=== PATIENT | female | born 1980 | race Caucasian/White ===

== ENCOUNTER 2024-07-31 08:00 | Outpatient (RCR) | payer OTHER, SELFPAY ==
--- NOTE | 2024-07-31 10:15 | BH.SGPN.GN ---
Behaviors/Verbalizations/Mental Status: []Client alert and oriented, casually dressed and groomed. Eye contact good. Motor activity appropriate. Speech within normal limits. Affect congruent, mood anxious. Thoughts linear, logical, no signs of hallucinations or delusions. Client Response/Progress/Benefit: [] Pt was an attentive and active participant, AEB taking notes and providing input in group discussion when prompted. Attentive during psychoeducation. Pt engaged during interactive discussion in which the group defined self-care and discussed its benefits. Group discussed barriers to engaging in self-care. Group members together came up with guilt, time, ?people pleasing?, not knowing what to do, and perception that its unproductive as barriers to engage in self-care. Pt participated in small groups where they worked to identify and challenged common self-care ?myths?. Benefited from increased awareness of self-care, its benefits, and the consequences of not utilizing self-care strategies. Will continue IOP tx to improve healthy coping skills, challenge negative thoughts, and prevent decompensation.
--- NOTE | 2024-07-31 11:15 | BH.SGPN.GN ---
Behaviors/Verbalizations/Mental Status: [] Client alert and oriented, casually dressed and groomed. Eye contact good. Motor activity appropriate. Speech within normal limits. Affect congruent, mood anxious and depressed. Thoughts linear, logical, no signs of hallucinations or delusions. Client Response/Progress/Benefit: []Client first day in IOP tx, engaged in discussion reviewing different areas of self-care and completing self-assessment of current self care, as well as providing input throughout discussion. Did well to complete self-care self-assessment worksheet. Client identified current self-care practices and what self-care activities client wants to start using. Client selected emotional and social self-care to begin practicing more consistently. Client plans to do this by challenging themselves to make a consistent effort to practice self-compassion, as well as begin scheduling social plans ahead of time to increase likelihood of follow-through. Appeared to benefit from completing the self-care evaluation and gaining insights into current self-care practices, as well as identifying areas in which client would like to improve upon. Client will continue IOP tx to prevent decompensation, improve mood stability, and increase ability to challenge and replace thought distortions. Narrative Note: []
--- NOTE | 2024-07-31 14:33 | BH.COMM ---
Communication Note Communication with Client Communication Note: Met with pt to complete initial paperwork and administer the CSSR-S screening and risk assessment. Pt is a mild risk as pt denies any history of suicide attempts, no history of suicidal ideations, and no self-harm history. Pt does endorse survival ambivalence and thoughts of . Pt is future oriented. Pt reports ability to maintain safety today. Discussed case with Dr. 

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
--- NOTE | 2024-08-01 09:00 | BH.SGPN.GN ---
Behaviors/Verbalizations/Mental Status: [] Pt alert and oriented, neatly dressed and groomed. Eye contact good. Motor activity appropriate. Speech within normal limits. Affect congruent, mood depressed and anxious. Thoughts linear, logical, no signs of hallucinations or delusions. Reviewed pt?s symptom tracker, no risk for suicidal ideation, plan, or intent 08/01/24 Client Response/Progress/Benefit: []Pt was an active participant in group discussions. Attentive. Able to identify mental health wins including coming back today and not avoiding. Pt's stressor today is that pt is getting mental health treatment which is positive but right now is causing higher anxiety. Pt stated he is feeling anxious this morning. Pt receptive to feedback from peers which pt reported was helpful. Pt's second day of IOP and received a lot of encouragement from peers. Benefited from group support, encouragement, and feedback. Will continue in IOP to prevent decompensation, improve daily functioning, and increase self-compassion. Narrative Note: []
--- NOTE | 2024-08-01 10:15 | BH.SGPN.GN ---
Behaviors/Verbalizations/Mental Status: [] Eye contact is good. Motor activity is appropriate. Appearance is casual. Speech is Appropriate. Mood is anxious. Affect is congruent. Thoughts are linear and logical. No evidence of psychosis. Client Response/Progress/Benefit: [] Pt was an active participant during interactive group discussions. Along with peers contributed to interactive discussion on defining what a boundary is in mental health. Pt along with peers identified challenges to setting boundaries which included; people pleasing, fear of rejection, fear of loss, fear people won't respect the boundary, etc. Pt along with peers identified the benefits to setting boundaries such as reduces assumptions, can reduce stress, improve communication/relationships, and can keep us safe. Attentive during psychoeducation on types of boundaries (rigid, porous, flexible). Pt benefited from increased awareness and insight on the importance/benefit to setting health boundaries. Will continue in IOP to prevent decompensation, decrease anxious thoughts, and increase healthy coping.
--- NOTE | 2024-08-01 11:20 | BH.SGPN.GN ---
Behaviors/Verbalizations/Mental Status: []Eye contact is good. Motor activity is appropriate. Appearance is casual. Speech is Appropriate. Mood is depressed and anxious. Affect is congruent. Thoughts are linear and logical. No evidence of psychosis. Client Response/Progress/Benefit: []Pt responded well to session AEB listening attentively to peers and taking notes throughout. Reports connecting with rigid boundaries, especially with her intellectual and emotional boundaries. Participated in group discussion brainstorming various strategies for improving healthy boundary setting. Pt reports wanting to improve her comfort levels with trusting others emotionally. Seemed to benefit from increased awareness of how different boundary styles can impact mental health. Will continue IOP tx to prevent decompensation, improve daily functioning, and increase mood stability. Narrative Note: []
--- NOTE | 2024-08-02 09:15 | BH.NA ---
Physical Data Vital Signs Pulse Rate: 80 Blood Pressure: 174/118 Height/Weight Height: 1.63 m Weight:: 81.647 kg Weight in Pounds: 180.0 lbs Current Medication Compliance Medication Compliance Do you take your medication as prescribed?: Yes Nutritional History Appetite Nutritional Instructions: Describe your appetite:: Good Additional nutritional information:: Client states over the summer she lost 20lbs unintentionally from loss of appetite. Client states currently her appetite is increased. Functional Assessment Sleep Pattern Describe any problems with sleeping: Client states she sleeps about 8 hours per night, but does not feel rested when she wakes up. Sensory/Communication Assess Communication Problems Do you have difficulty understanding what people are saying?: No Medical Problems/History Pain Assessment Do you have acute or chronic pain?: No Surgical History Surgical History Have you had any surgeries? If so, list type and date:: Yes ( x2, jaw surgery) Substance Abuse Substance Abuse Please describe substance abuse in the last 30 days:: Client reports drinking alcohol on the weekends socially. Client denies tobacco or substance use. Client states she drinks 3 cups of coffee per day. Mental Status Summary Mental Status Significant Findings/Observations on Appearance and Mood:: Client is alert and oriented x 4. Client is casually groomed with good hygiene. Client is cooperative with assessment. Client makes good eye contact. Client's voice has normal rate and volume. Client appears moderately anxious during conversation with hand tremors and tapping her feet. Client has a somewhat constricted affect. Client makes logical associations and has normal processing. Client denies delusions/hallucinations. Client denies SI. Suicide Assessment Suicidal Ideation Are you currently or have you been suicidal in the past?: Yes Suicidal Intentional Rating Scale (SIRS): Suicidal thoughts (past) Physician Notification Past Psychiatric History MH Treatment Hx Past Psychiatric Medications:: Prozac Age of first mental health symptoms: Client was first on medication for depression around age 21 and took Prozac off and on for years after. Client recently took a Gene Sight test and Prozac is not a good match and she is now on Pristiq. Describe (age, circumstance, etc) any past hospitalizations: None. Current providers for mental health treatment (counselor, psychiatrist, human services case manager, etc.): Valeria Ch at [facility] for therapy, RASHEEDA Silva, at [place] [id number] Fall Risk Assessment Age Age: Less than 60 Physical Status Physical Status: No problems Impairments Impairments: None Elimination Elimination: Continent AND independent Gait or Balance Gait or Balance: Walks independently Hx of Falls History of falls in the past 6 months: No known history Medications/Substances Psychotropics:: Antidepressants and Antipsychotics RN Summary of Impressions Impressions Recommendations Impressions: Psychiatric Issues: 1. Major depressive disorder, recurrent, severe without psychosis 2. Generalized anxiety disorder 3. Rule out PTSD 4. Work and primary support issues Impression: Medical Issues: Clients BP 174/118 HR 80. Discussed with client. Client states she does not know what her BP usually is. Client states she has been almost constantly at a high level of anxiety for the last several months. Client appears anxious during assessment. BP was rechecked after 10 minutes and remained the same. Discussed BP with Dr. Calloway. See communication note for further details. Level of Care How do the client's current symptoms and functional deficits support need for this level of care?: Client was referred to IOP by her outpatient therapist for anxiety and depression. Client states she has had periods of depression before in her life that she has gone through, but states since March 2024 she has also had high levels an anxiety that are hard to manage. Client states the worst anxiety was about 3 weeks ago, and states that was the last time she had a panic attack. Client had been having panic attacks over the last few months. Client also reports isolating herself at home, ruminations, decreased energy, and feeling like a burden. Client denies SI. IOP will promote gains and prevent further decompensation while providing social support and skills training.
--- NOTE | 2024-08-02 10:10 | BH.COMM ---
Communication Note Communication with Client Communication Note: BP 174/[address] Calloway suggests having client lay down and attempt to relax and retake BP. This nurse talked to client again. Client agreed to lay down for 15 minutes in dark room with relaxing music playing. After 15 minutes of laying down, this nurse took client's BP again- 159/112 [address] with Dr. Calloway and Dr. Calloway suggested client be seen in urgent care or ER due to high blood pressure. Discussed at length with client the risk of high BP and Dr. Nova suggestion to be evaluated. Client states she will consider going to the ER, and will go be seen if she develops symptoms (symptoms of a stroke discussed with client). Client agrees to call for a PCP appointment with the new provider of her choice today for an appointment SHANNAN, and states she will go home and take PRN Hydroxyzine and attempt to relax.
--- NOTE | 2024-08-02 10:15 | BH.SGPN.GN ---
Behaviors/Verbalizations/Mental Status: [] Eye contact is good. Motor activity is appropriate. Appearance is casual. Speech is Appropriate. Mood is anxious and depressed. Affect is congruent. Thoughts are linear and logical. No evidence of psychosis. Client Response/Progress/Benefit: [] Pt receptive to session AEB listening attentively to others and taking notes. Pt attentive and contributing throughout psychoeducation on the cognitive triangle and maintenance cycles. Pt engaged during group discussion reviewing the impact of daily activities and behaviors in either reinforcing unhealthy maintenance cycles and depression or assisting in reducing symptoms (?down? vs ?up? activities). Pt identified personal ?down? activities they engage in as: avoiding tasks, shutting down, and not getting ready. Attentive during discussion on Common ?Up? activities Pt identified theirs to include: doing make-up, taking care of basic needs, and time with her family. Appeared to benefit from increased awareness of current behaviors and impact these have on mental health. Will continue IOP to improve mood stability, prevent decompensation, and reduce negative thinking patterns. ?? Narrative Note: []
[2024-08-02 10:54] VITALS: BP 174/118; PULSE 80
--- NOTE | 2024-08-02 11:15 | BH.SGPN.GN ---
Behaviors/Verbalizations/Mental Status: []Eye contact is fair. Motor activity is appropriate. Appearance is casual. Speech is Appropriate. Mood is anxious. Affect is congruent. Thoughts are linear and logical. No evidence of psychosis. Client Response/Progress/Benefit: [] Pt responded well to session, attentive and engaged in group discussions and activity. Actively engaged in continued discussion about up activities and down activities. Active participant as group discussed values and the benefits that knowing one's values can have on one's mental health. Pt completed personal cognitive triangle negative loop. Pt set a goal to use opposite action to get up and get dressed after her second cup of coffee. Benefited from increased awareness of their personal values and how incorporating their values into behavioral activation goals can positive impact mental health. Will continue in IOP to improve healthy coping skills, decrease distortions, and prevent decompensation.
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
--- NOTE | 2024-08-02 13:23 | BH.DR.ITP ---
Initial Treatment Plan Patient Information Visit Information: ADMISSION DATE: EXPECTED LOS: 4-6 weeks Problems/Symptoms Problem #1:: Depression Symptom:: Sadness, hopelessness, worthlessness, low motivation, anhedonia, low energy, decreased concentration, guilt, passive thoughts of Problem #2:: Anxiety Symptom:: Worry, rumination, history of panic attacks, avoidance, hypervigilance
--- NOTE | 2024-08-07 09:00 | BH.SGPN.GN ---
Behaviors/Verbalizations/Mental Status: [] Eye contact is good. Motor activity is appropriate. Appearance is casual. Speech is Appropriate. Mood is depressed/anxious. Affect is congruent. Thoughts are linear and logical. No evidence of psychosis. Reviewed daily check in sheet and no reports of suicidal ideations or intent. Client Response/Progress/Benefit: [] Pt was an active participant in group discussions. Attentive. Daily symptom tracker notes 4/5 for anxiety and 3/5 for depression/irritability. According to pt she made appointments with her PCP ivelisse holman physical issues which have been impacting her for several months. She had put off these appointment due to mental health. Reports feeling ?relieved? that the appointments are made and the issues will be addressed. Stressor is returning to work this week. She has been off for 2 weeks and is anxious about returning. Progress noted. Benefited from group support, encouragement, and feedback. Will continue in IOP to prevent decompensation, stabilize anxiety, and increase healthy coping. Narrative Note: []
--- NOTE | 2024-08-07 10:15 | BH.SGPN.GN ---
Behaviors/Verbalizations/Mental Status: []Client alert and oriented, casually dressed and groomed. Eye contact good. Motor activity appropriate. Speech within normal limits. Affect congruent, mood anxious and depressed. Thoughts linear, logical, no signs of hallucinations or delusions. Client Response/Progress/Benefit: [] Pt responded well to session AEB actively participating throughout group. Pt was attentive throughout group activity discussing famous individuals and how they overcame failure to be successful. Pt helped group identify how fear of failure can impact mental health and relationships. Pt personally identified it leads to pt to try and control everything and take on too much. Participated in experiential activity, working with group members to problem solve. Appeared to benefit from increased knowledge of what causes fear of failure and how it impacts people. Will continue IOP tx to prevent decompensation, improve mood stability, and challenge use of thought distortions reinforcing depression and anxiety sx. Narrative Note: []
--- NOTE | 2024-08-07 11:15 | BH.SGPN.GN ---
Behaviors/Verbalizations/Mental Status: []Pt alert and oriented, neatly dressed and groomed. Eye contact good. Motor activity appropriate. Speech within normal limits. Affect congruent, mood anxious and depressed. Thoughts linear, logical, no signs of hallucinations or delusions. Client Response/Progress/Benefit: [] Pt responded well to session, engaged in the experiential activity and attentive throughout group processing. Pt reported fear of failure has kept Pt from changing her career and going back to school. Pt completed fear of failure worksheet and was able to identify thoughts and behaviors that reinforce personal fear of failure including not being able to trust people, fear of disappointing others, and fear that she cannot do it. Pt participated in small group discussion regarding strategies to overcome fear of failure. Identified wanting to work on telling herself ?I am the STEEL WELDER of my life? and thinking in the altamirano. ?Appeared to benefit from increased knowledge of strategies to combat fear of failure and gaining self-awareness. Pt will continue IOP tx to prevent decompensation, combat distortions, and increase self-compassion. Narrative Note: []
--- NOTE | 2024-08-08 09:05 | BH.SGPN.GN ---
Behaviors/Verbalizations/Mental Status: [] Pt alert and oriented, neatly dressed and groomed. Eye contact good. Motor activity appropriate. Speech within normal limits. Affect congruent, mood depressed. Thoughts linear, logical, no signs of hallucinations or delusions. Reviewed pt?s symptom tracker, no risk for suicidal ideation, plan, or intent 08/08/24 Client Response/Progress/Benefit: []Pt was an active participant in group discussions. Attentive. Able to identify mental health wins including getting to IOP today and planning to go to work half a day today which is also a stressor too. Pt's stressor today is that pt feels like I don't have anything for myself and that she should not feel depressed because she has a perfect life. Pt stated pt is feeling confused this morning. Pt receptive to feedback from peers which pt reported was helpful. Progress noted as pt reports less anxiety about being in group this week. Benefited from group support, encouragement, and feedback. Will continue in IOP to prevent decompensation, improve daily functioning, and increase distress tolerance skills. Narrative Note: []
--- NOTE | 2024-08-08 10:15 | BH.SGPN.GN ---
Behaviors/Verbalizations/Mental Status: []Pt alert and oriented, casually dressed and groomed. Eye contact fair. Motor activity appropriate. Speech within normal limits. Affect congruent, mood anxious. Thoughts linear, logical, no signs of hallucinations or delusions. Client Response/Progress/Benefit: [] Pt was attentive during psychoeducation and participated in group activity. Group discussed what contributes to a person?s perspective and how perspective can positively or negatively impact mental health treatment. Pt reflected on their perspective today and how it is impacting them. Pt shared her initial perspective towards mental health treatment was somewhat negative, but is trying to challenge this perspective and has some hope she can get better. Pt appeared to benefit from increasing awareness of different perspectives and how they can affect mental health. Pt will continue IOP tx to improve view of self, increase consistent use of healthy coping skills, and prevent decompensation. Narrative Note: []
--- NOTE | 2024-08-08 11:18 | BH.SGPN.GN ---
Behaviors/Verbalizations/Mental Status: []Pt alert and oriented, casually dressed and groomed. Eye contact good. Motor activity appropriate. Speech within normal limits. Affect congruent, mood depressed and anxious. Thoughts linear, logical, no signs of hallucinations or delusions. Client Response/Progress/Benefit: []Pt was attentive and contributed to group discussion. Pt worked with group to identify strategies that can help with challenging negative perspective. Pt stated she can remind self that things can be both black and white as a way to challenge negative perspective. Pt completed strengths exploration worksheet, identifying personal strengths. Pt able to acknowledge how these strengths are helping pt and can continue to help pt in mental health journey. Benefited from identifying personal strengths and strategies for enhancing use of identified strengths. Pt will continue IOP tx to continue practice healthy coping skills, improve thought challenging, and prevent decompensation. Narrative Note: []
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
--- NOTE | 2024-08-10 09:00 | BH.SGPN.GN ---
Behaviors/Verbalizations/Mental Status: [] Eye contact is good. Motor activity is appropriate. Appearance is casual. Speech is Appropriate. Mood is anxious/irritable. Affect is congruent. Thoughts are linear and logical. No evidence of psychosis. Reviewed daily check in sheet and no reports of suicidal ideations or intent. Client Response/Progress/Benefit: [] Pt was an active participant in group discussions. Attentive. Daily symptom tracker notes 5/5 for anxiety and irritability. ? I feel very scattered in my head?. Went back to work and ?hated every moment?. Points out that her co-workers and boss are very supportive however does not get satisfaction from her current job. ? I just can?t anymore?. Reports crying spell in her car this AM and reports feeling unsure and lost regarding her current life. No progress noted. Benefited from group support, encouragement, and feedback. Will continue in IOP to prevent decompensation, increase healthy coping, and improve functioning. Narrative Note: []
--- NOTE | 2024-08-10 10:10 | BH.SGPN.GN ---
Behaviors/Verbalizations/Mental Status: [] Eye contact is good. Motor activity is appropriate. Appearance is casual. Speech is Appropriate. Mood is depressed and anxious. Affect is congruent. Thoughts are linear and logical. No evidence of psychosis. Client Response/Progress/Benefit: [] Pt did well to participate in activity and was engaged and attentive during psychoeducation and interactive discussion on coping skills, why people use unhealthy coping skills, how to replace unhealthy coping skills, and internal vs external coping skills. Attentive as peers came up with list of negative coping skills including not asking for help, avoidance, isolating, sleeping, shopping, substance use, and several others. Pt stated she has used isolation and substance use as an unhealthy coping skill. Recognizes this makes things worse. Stated she has been working on challenging herself to use thought challenging and self-compassion. Group discussed the effects of how maladaptive coping skills can impact mental health in a negative way. Benefited from increased understanding of unhealthy coping skills and the need for developing healthy internal and external coping skills. Will continue in IOP to promote healthy coping skills, improve mood stability, and prevent decompensation. Narrative Note: []
--- NOTE | 2024-08-10 11:10 | BH.SGPN.GN ---
Behaviors/Verbalizations/Mental Status: []Pt alert and oriented, neatly dressed and groomed. Eye contact good. Motor activity appropriate. Speech within normal limits. Affect congruent, mood depressed. Thoughts linear, logical, no signs of hallucinations or delusions. Client Response/Progress/Benefit: [] Pt responded well to session, taking notes and contributing when prompted. Group discussed the different categories of coping skills which included distraction, emotional release, grounding, self-love, and thought challenging. Pt participated in creating a coping skills ?menu? from the different categories of coping skills. Pt's coping skill menu included: journaling, cleaning, box breathing, and practicing catching distortion ?red flags?. Appeared to benefit from increasing repertoire of healthy coping skills. Will continue IOP to prevent decompensation, increase self-compassion, and improve daily functioning. ? Narrative Note: []
--- NOTE | 2024-08-14 09:05 | BH.SGPN.GN ---
Behaviors/Verbalizations/Mental Status: [] Eye contact is good. Motor activity is appropriate. Appearance is casual. Speech is Appropriate. Mood is anxious.. Affect is constricted. Thoughts are linear and logical. No evidence of psychosis. Reviewed daily check in sheet and no reports of suicidal ideations or intent. Client Response/Progress/Benefit: [] Pt was an active participant in group discussions. Attentive. Daily symptom tracker notes 11/01 for depression and anxiety. ? I?m feeling more like myself?. ? I only had one meltdown? over the weekend. According to pt she has been placing more emphasis on self-care, communication, and setting boundaries. ? I always thought self-care was a waste of resources?. Insight on how this perspective change and action benefited her mental health. Progress noted. Benefited from group support, encouragement, and feedback. Will continue in IOP to prevent decompensation, increase healthy coping, and improve functioning. Narrative Note: []
--- NOTE | 2024-08-14 10:10 | BH.SGPN.GN ---
Behaviors/Verbalizations/Mental Status: [] Eye contact is fair. Motor activity is appropriate. Appearance is casual. Speech is Appropriate. Mood is anxious and dysthymic. Affect is congruent. Thoughts are linear and logical. No evidence of psychosis. Client Response/Progress/Benefit: [] Pt receptive of session, actively engaged throughout AEB taking notes, providing input, and contributing in small group discussion. Appeared to connect with group topic of automatic thoughts and cognitive distortions, as well as the impact of thought patterns on mental health, coping behaviors, and relationships. This particular group is very heavy on psychoeducation and pt appeared to connect with distortions and how they can impact functioning. Identified struggling with all or nothing distortion. Pt appeared to benefit from gaining insight on distorted thinking patterns and how this impacts overall mental health. Will continue IOP to increase healthy coping, challenge perspective, and prevent decompensation.
--- NOTE | 2024-08-14 11:15 | BH.SGPN.GN ---
Behaviors/Verbalizations/Mental Status: [] Eye contact is good. Motor activity is appropriate. Appearance is casual. Speech is Appropriate. Mood is anxious and content. Affect is congruent. Thoughts are linear and logical. No evidence of psychosis. Client Response/Progress/Benefit: [] Pt was an active participant during group discussion. Pt was placed in a smaller group and participated in cognitive distortions jeopardy game with peers. Pt was engaged in the smaller group, participated in group interactions to brainstorm answers, and appeared to be comprehending cognitive distortions. Pt stated could connect with many of the distortions covered in group. Pt stated they now have knowledge on how cognitive distortions are affecting them negatively, which distortions they specifically struggle with, and how communication be impeded when both parties are experiencing distorted thoughts. Benefited from gaining further insight and awareness of cognitive distortions as well as practicing ways to reframe and challenge thoughts. Will continue in IOP tx to increase healthy thinking patterns, functioning, and anxiety management. Narrative Note: []
--- NOTE | 2024-08-15 09:00 | BH.SGPN.GN ---
Behaviors/Verbalizations/Mental Status: [] Pt alert and oriented, neatly dressed and groomed. Eye contact good. Motor activity appropriate. Speech within normal limits. Affect congruent, mood euthymic. Thoughts linear, logical, no signs of hallucinations or delusions. Reviewed pt?s symptom tracker, no risk for suicidal ideation, plan, or intent 08/15/24 Client Response/Progress/Benefit: []Pt was an active participant in group discussions. Attentive. Able to identify mental health wins including practicing a lot of self-care over the weekend, setting boundaries, and becoming better at being vulnerable with her . Pt's stressor today is preparing for Thanksgiving and trying to not get too overwhelmed. Pt stated she is feeling settled this morning. Pt receptive to feedback from peers which pt reported was helpful. Progress noted. Benefited from group support, encouragement, and feedback. Will continue in IOP to prevent decompensation, increase distress tolerance skills, and improve daily functioning. Narrative Note: []
--- NOTE | 2024-08-15 10:15 | BH.SGPN.GN ---
Behaviors/Verbalizations/Mental Status: [] Eye contact is fair. Motor activity is appropriate. Appearance is casual. Speech is Appropriate. Mood is anxious. Affect is constricted. Thoughts are linear and logical. No evidence of psychosis Client Response/Progress/Benefit: [] Pt engaged in session AEB listening attentively to others and providing input throughout. Pt engaged in activity, able to connect how it can be uncomfortable and difficult to accept when things are out of one?s own control. Worked with peer group to identify things in life which are hard to accept which included; loss, medical diagnoses, change, lack of control, failure, and needing help. Seemed to benefit from increased awareness of the meaning as well as the importance of acceptance. Will continue in IOP to prevent decompensation, increase healthy coping, and improve functionig to transition back to work. Narrative Note: []
--- NOTE | 2024-08-15 11:10 | BH.SGPN.GN ---
Behaviors/Verbalizations/Mental Status: []Pt alert and oriented, casually dressed and groomed. Eye contact fair. Motor activity appropriate. Speech within normal limits. Affect congruent, mood anxious. Thoughts linear, logical, no signs of hallucinations or delusions. Client Response/Progress/Benefit: [] Pt responded well to session AEB taking notes and contributing to discussion throughout. Pt engaged as group continued discussion on acceptance and the mental health benefits of practicing acceptance. Pt and peers identified what makes acceptance challenging and pt completed a self-reflection exercise on what is hard to accept in pt's life. Pt identified things that are hard to accept include: job struggles, past trauma, need for help, and mental health reality. Pt stated by not accepting certain situations it leads to increased anxiety and limits progress. Group identified strategies to increase acceptance. Pt appeared to benefit from gaining insight and learning strategies to increase acceptance. Pt will continue IOP tx to promote use of healthy coping skills, challenge negative perspective, and prevent decompensation.
--- NOTE | 2024-08-15 15:06 | BH.MDN ---
Multi-Disciplinary Note Note 45-min Individual: Time Started:: 12:10 Date: 08/15/24 Purpose of session/treatment goals addressed:: To work on goal #1 of pt's tx plan and to work on self-validation techniques. Eye Contact:: Good Motor Activity:: Appropriate Appearance:: Neat and Casual Speech:: Soft Mood:: Euthymic and Anxious Affect:: Congruent Thoughts:: Linear, Logical and No evidence of hallucinations/delusions noted Staff Interventions:: thought challenging, motivational interviewing, CBT techniques, mindfulness skills, strengths perspective and other (reviewed homework and discussed homework of exploring personal acceptance.) Client Response:: Pt responded well to session, open to meeting with therapist. Pt reports over the weekend she allowed herself to set boundaries and say no to some activities. Pt felt uncomfortable, but she challenged herself to make the most of her time, so she crafted. Pt stated doing the homework reminded pt how much she loves creating things and repurposing things. Pt shared she felt accomplished and happy while crafting. Pt stated then she became anxious and self-critical because she personalized a statement her made about her crafts. Pt reported she and her talked about it which helped pt combat distorted thinking, but pt is still mentally beating herself up for her immediate reaction. Pt receptive to discussion of acceptance of self and no bad parts. Pt gained insight to the benefit of accepting emotions and taking care of them rather than getting angry with them and dismissing them. Pt practiced some dialectical statements in session which pt reported was helpful. Another stressor pt has been thinking about is what she wants to do with her future. Pt opened up about not finding passion or enjoyment in her job and not wanting to return. Pt's barriers are fear of disappointing her , feeling selfish, fear of the unknown, and self-doubt. Pt shared she will say the barrier is financial, but it is not only that. Pt receptive to journaling to reflect more on what she wants to do and how her choices would impact her both short and long-term. Risks/Concerns:: Pt denies any suicidal ideations, plan, or intent. Pt denies any thoughts of . Progress Toward Goals/Plan:: Progress noted as pt shared the homework from last session led pt to engage in more self-care over the weekend. Pt shared she is becoming more open to the idea of advocating for her needs and discussing her desire to not return to work. Pt reports feeling less anxious when she is at IOP. Pt will continue IOP tx to promote mood stability, reduce negative thinking patterns, and improve self-compassion. Time Stopped:: 12:55
--- NOTE | 2024-08-18 09:00 | BH.SGPN.GN ---
Behaviors/Verbalizations/Mental Status: [] Eye contact is good. Motor activity is appropriate. Appearance is casual. Speech is Appropriate. Mood is anxious. Affect is congruent. Thoughts are linear and logical. No evidence of psychosis. Reviewed daily check in sheet and no reports of suicidal ideations or intent. Client Response/Progress/Benefit: [] Pt was an active participant in group discussions. Attentive. Daily symptom tracker notes 2/5 for anxiety and /5 for depression. ?I?m considering changing jobs?. Briefly discussed struggles with current job mainly related to lack of purpose and meaning. Shared how this impacts her mental health, energy, and motivation. ?I just have no passion?. She is planning to communicate and be honest with regarding job concerns. Progress noted. Benefited from group support, encouragement, and feedback. Will continue in IOP to prevent decompensation, increase healthy coping, and improve functioning. Narrative Note: []
--- NOTE | 2024-08-18 10:15 | BH.SGPN.GN ---
Behaviors/Verbalizations/Mental Status: []Pt alert and oriented, casually dressed and groomed. Eye contact good. Motor activity appropriate. Speech within normal limits. Affect congruent, mood content. Thoughts linear, logical, no signs of hallucinations or delusions. Client Response/Progress/Benefit: [] Pt took notes and contributed to group discussions. Attentive during psychoeducation on growth mindset. Participated during the activity. Interactive group discussion on growth mindset in which group verbalized their current fixed mindsets and how they affect their mental health. Pt shared common fixed mindset thoughts they have. These thoughts lead to feeling and staying stuck, not maintaining boundaries, and self-doubt. Pt stated they have personally struggled with fixed thoughts causing them to accept less out of guilt. Pt benefited from increased awareness of growth mindset and fixed thoughts and how fixed thoughts impact their mental health. Will continue IOP tx to prevent decompensation, improve daily functioning, and promote mood stability. Narrative Note: []
--- NOTE | 2024-08-18 11:10 | BH.SGPN.GN ---
Behaviors/Verbalizations/Mental Status: []Pt alert and oriented, neatly dressed and groomed. Eye contact good. Motor activity appropriate. Speech within normal limits. Affect congruent, mood calm. Thoughts linear, logical, no signs of hallucinations or delusions. Client Response/Progress/Benefit: []Pt was an active participant during activity and discussion. Pt did well to remain attentive and participate as group worked on identifying characteristics and benefits of adopting a growth mindset. Worked with fellow participants in reframing the example fixed thoughts into growth mindset thoughts. Pt worked on changing own fixed thought and reframed the thought to ?my decisions for my life are valid.? Pt also wants to work on using dialectical thinking. Pt appeared to benefit from challenging own thoughts and engaging in the activity. Pt will continue IOP tx to reduce negative thinking patterns, improve distress tolerance skills, and improve self-compassion. ? Narrative Note: []
--- NOTE | 2024-08-21 09:00 | BH.SGPN.GN ---
Behaviors/Verbalizations/Mental Status: [] Eye contact is good. Motor activity is appropriate. Appearance is casual. Speech is Appropriate. Mood is depressed. Affect is full. Thoughts are linear and logical. No evidence of psychosis. Reviewed daily check in sheet and pt denies suicidal ideations and intent. Client Response/Progress/Benefit: [] Pt participated throughout. Attentive and providing supportive feedback to peers. Daily symptom tracker notes 5 for anxiety and depression. Reports mental health win as starting to feel more like myself. However, went on to discuss struggling with inappropriate guilt about not currently working and feeling obligated to return to her current job despite hating it. Shared that although she recognizes her supports are encouraging her to do what is best for her mental health, she continues to feel guilty and place unnecessary pressure on herself to just suck it up and go back despite possible negative impacts that would have on her mental health long-term. Receptive of and benefited from group support, encouragement, and feedback. Will continue in IOP to prevent decompensation, stabilize mood, and further improve functioning. Narrative Note: []
--- NOTE | 2024-08-21 10:15 | BH.SGPN.GN ---
Behaviors/Verbalizations/Mental Status: []Patient was alert and oriented, casually dressed and groomed. Eye contact good. motor activity congruent. speech within normal limits. Affect congruent, mood euthymic. Thoughts linear, logical, no signs of hallucinations or delusion. Client Response/Progress/Benefit: []Pt participated in the group discussions AEB nodding and taking notes. Attentive during psychoeducation Goal Setting. Participated during the discussion on common barriers. Pt stated a personal barrier to accomplishing goals are judgment of self that goals aren't hard enough and self-doubt. Group also identified benefits of goals as sense of purpose, improved self-confidence, more motivation for other goals, and improved mental health. Pt identified personal benefits to goal setting. Benefited from increased awareness of mental health benefits of goals as well as psychoeducation on SMART goal criteria. Will continue in IOP to promote use of healthy coping skills, improve view of self, and prevent decompensation.
--- NOTE | 2024-08-21 11:10 | BH.SGPN.GN ---
Behaviors/Verbalizations/Mental Status: []Pt alert and oriented, neatly dressed and groomed. Eye contact good. Motor activity appropriate. Speech within normal limits. Affect constricted, mood anxious. Thoughts linear, logical, no signs of hallucinations or delusions. Client Response/Progress/Benefit: [] Pt was engaged during discussion and willing to complete the worksheet challenging them to develop a personal SMART goal. Pt chose the goal of advocating for herself about her plans for her job and future when talking to her today. Pt stated fear of rejection and fear of disappointing her as barriers. Identified solutions of reminding herself she matters and communicating ahead of time. Benefited from this group by developing a short-term SMART goal related to mental health. Will continue IOP tx to reduce negative thinking patterns, improve daily functioning, and increase self-confidence. Narrative Note: []
--- NOTE | 2024-08-21 14:22 | BH.MDN ---
Multi-Disciplinary Note Note 45-min Individual: Time Started:: 12:05 Date: 08/21/24 Purpose of session/treatment goals addressed:: To work on self-confidence techniques to reduce anxiety and improve self-advocacy. Eye Contact:: Good Motor Activity:: Appropriate Appearance:: Neat Speech:: Appropriate Mood:: Anxious Affect:: Constricted Thoughts:: Linear, Logical and No evidence of hallucinations/delusions noted Staff Interventions:: thought challenging, motivational interviewing, CBT techniques, mindfulness skills and strengths perspective Client Response:: Pt responded well to session, open to meeting with therapist. Pt shared I was starting to feel better and confident and then I totally shut down this weekend. Pt stated her had asked pt what her plan was for returning to work and she got anxious and fearful of disappointing him, so she agreed to just return to her old job. Pt then regretted this and wants to have another, more honest conversation, with her hood. Pt stated she knows that he is supportive and will likely understand, but pt has many negative thoughts that are reinforcing pt's avoidance and fear of disappointment. Pt appeared to benefit from thought challenging and motivational interviewing techniques. Pt reminded self that disappointment and disagreeing are not the same thing and pt and her are capable of coping through both of those stressors. Pt also looked at the evidence that combatted any distortions and reminded herself that she is worthy of expressing her needs and wants. Pt stated it would be helpful to go home and write down what she wants to say/discuss with her . Risks/Concerns:: Pt denies any suicidal ideations, plan, or intent. Pt denies any thoughts of . Progress Toward Goals/Plan:: Pt reports benefitting from group sessions and feels she is applying coping skills outside of IOP. Pt shared she is noticing some positive changes such as increased ability to combat distortions, but she is still struggling with advocating for herself. Pt will continue IOP tx to promote mood stability, increase self-compassion, and reduce avoidance. Time Stopped:: 12:45
--- NOTE | 2024-08-22 09:05 | BH.SGPN.GN ---
Behaviors/Verbalizations/Mental Status: [] Eye contact is good. Motor activity is appropriate. Appearance is casual. Speech is Appropriate. Mood is euthymic. Affect is full. Thoughts are linear and logical. No evidence of psychosis. Reviewed daily check in sheet and no reports of suicidal ideations or intent. Client Response/Progress/Benefit: [] Pt was an active participant in group discussions. Attentive. Daily symptom tracker notes 5 for anxiety and 5 for depression. ?I?ve hit a turning point in my life?. Feeling ?excited? today. Shared with the group that she ?talked with her ? regarding her desire to quit her current job. Discussed the impact that her current job had on her mental health, purpose, and meaning. Proud of herself on many levels and is excited about the future. Progress noted. Will continue in IOP to prevent decompensation, stabilize anxiety, increase healthy coping, and improve functioning Narrative Note: []
--- NOTE | 2024-08-22 10:15 | BH.SGPN.GN ---
Behaviors/Verbalizations/Mental Status: [] Eye contact is good. Motor activity is appropriate. Appearance is casual. Speech is Appropriate. Mood is euthymic. Affect is congruent. Thoughts are linear and logical. No evidence of psychosis. Client Response/Progress/Benefit: [] Pt engaged participant AEB listening to others, engaging in activity, and providing feedback at times. Attentive during psychoeducation and provided insight into obstacles that impede mental wellness. Pt chose to not share with group current mental health reality and desired mental health reality. Did appear attentive to others that shared. Identified barriers to desired reality include: fear of not doing the right thing, believe she doesn't deserve good things, and feeling hopeless. Benefited from taking look at current mental health state and obstacles for progress. Pt to continue IOP tx to challenge distorted thoughts, improve confidence, and prevent decompensation.
--- NOTE | 2024-08-22 11:20 | BH.SGPN.GN ---
Behaviors/Verbalizations/Mental Status: []Eye contact is good. Motor activity is appropriate. Appearance is casual. Speech is Appropriate. Mood is anxious and dysthymic. Affect is congruent. Thoughts are linear and logical. No evidence of psychosis. Client Response/Progress/Benefit: []Pt was an engaged participant in group discussion and activity. Worked with group to identify strategies to help overcome barriers and obstacles to desired reality. Group developed strategies for the common barriers. Identified personal barriers to desired reality and choose one obstacle to work. Pt stated pt wants to work on barrier of fear of disappointing others by asking herself if it will make her happy long-term. Pt seemed to benefit from increased repertoire of healthy coping skills/strategies to overcome common barriers to moving forward. Pt is to continue IOP to prevent decompensation, increase healthy coping skills, and improve daily functioning. Narrative Note: []
--- NOTE | 2024-08-23 09:00 | BH.SGPN.GN ---
Behaviors/Verbalizations/Mental Status: []Client alert and oriented, casual appearance. Eye contact good. Motor activity appropriate. Speech within normal limits. Affect congruent, mood euthymic and anxious. Thoughts linear, logical, no signs of hallucinations or delusions. Reviewed client's symptom tracker, no risk for suicidal ideation, plan, or intent. Client Response/Progress/Benefit: []Client responded well to session AEB listening to others and sharing thoughts/feelings. Client reported mental health positive as reflecting on group topic from yesterday when she went home which helped her gain personal insight. Client stated she really enjoyed doing a creative arts activity because it helped her see a different perspective. Client shared currently feeling stressed about whether she should attend family Thanksgiving tomorrow. Client elicited feedback from group on difference between isolation and setting a boundary. Client stated she will reflect on why she is wanting to not go to the family Thanksgiving. Appeared to benefit from support from peers. Will continue IOP tx to maintain gains, challenge distortions, and prevent decompensation.
--- NOTE | 2024-08-23 10:15 | BH.SGPN.GN ---
Behaviors/Verbalizations/Mental Status: [] Eye contact is good. Motor activity is appropriate. Appearance is casual. Speech is Appropriate. Mood is euthymic. Affect is full. Thoughts are linear and logical. No evidence of psychosis. Client Response/Progress/Benefit: [] Pt was an active participant in group discussions. Attentive during psychoeducation on the 4 communication styles (Passive, Passive-Aggressive, Aggressive, and Assertive) and the obstacles to effective communication. ?Participated during interactive discussions on the benefits and disadvantages to each communication style. Along with peers was able to identify struggles and illusions to effective communication. Pt believes that she is most often passive which causes her to not feel valued. Benefited from increased understanding of communication styles and how these can impact effective communication. Will continue in IOP tx to prevent decompensation, increase healthy coping, and improve functioning. Narrative Note: []
--- NOTE | 2024-08-23 10:19 | BH.COMM ---
Communication Note Communication with Client Communication Note: Checked in with client at this time since her BP was elevated upon assessment on 08/02/24. Client states she has seen her PCP and has started Metoprolol 50mg daily for her BP. Client states she checks her BP regularly at home. Today BP is 169/109 HR 63. Client states her diastolic at home now is usually in the 90's. Client states her PCP continues to monitor.
--- NOTE | 2024-08-23 11:15 | BH.SGPN.GN ---
Behaviors/Verbalizations/Mental Status: []Pt alert and oriented, neatly dressed. Eye contact good. Motor activity appropriate. Speech within normal limits. Affect congruent, mood euthymic. Thoughts linear, logical, no signs of hallucinations or delusions. Client Response/Progress/Benefit: [] Pt responded well to session AEB Pt listening attentively to others and providing input during group discussion on the pay offs and costs of the different communication styles. Pt able to connect how current communication style impacts mental health. Connected with peers? comments about importance of using assertive communication. Pt did well with practicing being assertive in the group activity and worked with group to identify potential skills for improving communication skills. Pt stated she will practice being assertive by being more direct and avoiding vague responses. Pt seemed to benefit from increasing awareness of healthy strategies to improve communication. Will continue IOP tx to promote mood stability, reinforce healthy coping skills, and increase self-confidence. Narrative Note: []
--- NOTE | 2024-08-23 12:24 | PCM.BH.PN ---
Progress Note Progress Note: History of Present Illness/Interim History: The patient is a 44-year-old female with a history of depression and anxiety who is seen in follow-up at the [facility]. I last saw the patient 3 weeks ago and at that time her blood pressure was severely [id number] so she was encouraged to see her primary care doctor and to go to the emergency room. The patient states that she has been diagnosed with hypertension and is on a medication for this now and this has made her feel better. She says her feeling of tightness in her chest has resolved after the hypertension was treated and her anxiety now has improved. She has taken an extended leave off of work while doing the IOP and feels good about this also. She states that her mood is getting better. According to staff she has been consistent in her attendance and engaged in the program. As per our discussion last appointment the patient has decided to discontinue the quetiapine due to weight gain and the fact that it does not help her sleep much. She has a experimented with doses and has found that 50 mg of Vistaril as needed for sleep at night is a good regimen for her. She is sleeping 8 hours a night now and feels more rested in the morning. She denies suicidal ideation, plan for suicide, homicidal ideation, hallucinations or delusions. She is not having any panic attacks in the past several weeks. Current Psychiatric Medications: [] Pristiq 50 mg p.o. daily (x 6 weeks); Seroquel discontinued about 2-1/2 to 3 weeks ago. She is not taking hydroxyzine 50 mg at bedtime as needed for sleep. Mental Status Examination: [] The patient is a 44-year-old female who appears normal or slightly older than her age. She is casually dressed and groomed with good hygiene and is ambulatory with a normal gait. She has no psychomotor agitation or retardation. She is cooperative and pleasant during the interview. Eye contact is good and speech is normal rate and rhythm and fluent with no pressure. Mood is depressed. Affect is mildly constricted. Thought process is goal-directed and organized. Thought content: Patient feels much less overwhelmed now and feels she is getting a handle on things in her life that need to be dealt with. There is no evidence of passive thoughts of , suicidal ideation, plan for suicide, homicidal ideation, hallucinations or delusions. Reality testing is intact. Intelligence is above average. Judgment is intact. Insight is good. Impulsivity is low to moderate. Diagnoses: [] 1. Major depressive disorder, recurrent, severe without psychosis (improving) 2. Generalized anxiety disorder 3. Rule out PTSD 4. Hypertension 5. Work and primary support issues Plan: [] The patient will continue the IOP in behavioral health at [facility] as the structure, support, education and group therapy will hopefully prevent worsening of the patient's symptoms. She felt safe during the interview and if it anytime she does not feel safe she has agreed to let us know or go to the emergency room. No medication changes were made today as the patient does not wish to increase her dose of Pristiq as she feels she is slowly improving on this dose. She will continue to follow-up with her outpatient providers and I will see the patient in follow-up while she is in the IOP.
--- NOTE | 2024-08-23 15:54 | BH.TPR ---
Treatment Plan Review Demographics Date of Admission:: 07/31/24 Date of Treatment Plan Review:: 08/23/24 Admitting Diagnoses:: Major Depressive Disorder, recurrent, severe, without psychosis F 33.2; MENDY; Rule out PTSD Current Diagnoses:: Major Depressive Disorder, recurrent, severe, without psychosis F 33.2; MENDY; Rule out PTSD Patient Status Patient's Response to Treatment:: Pt has responded well to session AEB consistently attending IOP and engaging in both individual and group therapy sessions. Pt consistently completes homework provided from individual counseling. Pt contributes actively during group discussions, takes notes, appears to listen to others, and engages in group activities. Pt's overall DSM-5 scores have decreased by 28% since admission and she reports finding benefit from the coping skills so far. Pt also reports improving functioning at home and increased confidence in her ability to communicate about stressors with her . Status of Current Problems and Symptoms: Pt's biggest stressor is deciding what she wants to do about her job and if she wants to return to college in the future. Pt's stressors with her are resolving as pt has been communicating openly with him about her thoughts on work. Pt's symptoms of depression have decreased, but she reports still feeling little interest in doing things most days. Pt also reports still not knowing who she is or what she wants in life most days. Pt is working on reducing self-judgment and advocating for herself. Progress Problem #1: Problem Name:: Depression, isolation, worthlessness, negative self-talk. Status of Goals:: Objective 1- in progress. Pt?s scores for depression have decreased since admission by 28%. Pt can benefit from reducing these symptoms more. Pt is working on practicing more self-care which is both beneficial and new for pt which adds some stress. Objective 2- in progress. Pt is working on self-compassion, dialectical thinking, and being vulnerable with her spouse. Team Recommendations:: Team recommends continued goals and objectives to reinforce skills and further reduce symptoms. Team recommends pt continue working on being vulnerable with her , being more self-compassionate, and practicing dialectical thinking. Problem #2: Problem Name:: Anxiety, rumination, panic attacks. Status of Goals:: Objective 1- in progress. Pt is working on not mind-reading and personalizing which has helped pt better communicate and cope with anxiety, especially during times of conflict. Pt acknowledges that she still struggles with shutting down when she feels like she has disappointed someone. Objective 2- complete with ongoing work encouraged. Pt?s symptoms have decreased by 44% since admission. Pt can continue to work on reducing avoidance and advocating for herself when she is anxious. Team Recommendations:: Treatment team encourages pt to continue working on distress tolerance skills, verbalizing boundaries, grounding skills, and practicing self-care to reduce stress.
--- NOTE | 2024-11-23 15:02 | BH.DS ---
Discharge Summary Demographics Discharge Date: 11/16/24 Discharge Diagnoses:: Major Depressive Disorder, recurrent, severe, without psychosis F 33.2; MENDY; Rule out PTSD Reason for Discharge:: Pt has accomplished tx goals AEB ability to maintain mood stability and gains made in IOP. Pt's DSM-5 scores remain 79% lower than her IOP admission scores. Pt will transition to traditional outpatient counseling. Treatment Progress During Treatment & Response: Pt responded well and made progress in IOP aftercare as evidenced by pt's participation in group discussions and self-report of consistently applying coping skills. Pt's overall DSM-5 scores decreased by 83% from IOP admission. Pt?s depression decreased by 71% since original IOP admission and pt's scores for anxiety decreased by 78% compared to original IOP scores. Issues Still to be Addressed:: Client could benefit from continued reinforcement of healthy coping skills, reinforcement of maintenance plan, and formation of a weekly self-compassion practice. Discharge Handout
== END 2024-08-26 23:59 ==
LOC: BHIOP 08:00
PROVIDERS: PCP Internal Medicine; Referring Provider Psychiatry & Neurology Psychiatry; Visit Provider Psychiatry & Neurology Psychiatry
DX: F33.2 Major depressive disorder, recurrent severe without psychotic features (principal); F41.1 Generalized anxiety disorder
CPT/HCPCS: S9480; 90832; 90834; 90837; 90853

== ENCOUNTER → 2024-08-02 | Outpatient (CLI) | payer OTHER, SELFPAY ==
[2024-08-02 13:17] LABS: Absolute Neutrophil Count 5.7 X10^3/uL (2.0-7.7); Basophil# 0.08 X10^3/uL; Eosinophil# 0.08 X10^3/uL; Hemoglobin 12.8 g/dL (12.0-15.0); Lymphocyte % 19.6 % (19-41); Mean Corpuscular Hgb 26.6 pg (27.0-32.0); Mean Corpuscular Volume 83.2 fL (81-99); Mean Platelet Vol. 10.6 fl (6.2-12.0); Monocyte# 0.67 X10^3/uL; Monocyte% 8.2 % (0-10); NRBC Flagged by Analyzer 0 % (0-5); Neutrophil # 5.74 X10^3/uL (2.7-7.7); Neutrophil % 70.1 % (47-70); Platelet Count 334 K/mm3 (150-450); RBC Distribution Width SD 45.5 fl (35.1-43.9); Red Blood Count 4.81 M/mm3 (4.2-5.4); White Blood Count 8.2 K/mm3 (4.4-11.0)
[2024-08-02 13:53] LABS: ALB/GLOB Ratio 0.8 RATIO (0.9-2.4); AST(SGOT) 21 U/L (15-37); Alanine Aminotransfer ALT/SGPT 23 U/L (13-56); Albumin, Serum 3.6 g/dL (3.2-5.0); Alkaline Phosphatase 94 U/L (45-117); Anion Gap 6 (5-15); BUN 11 mg/dL (7-18); BUN/Creat Ratio 10.6 RATIO (10-20); Calcium,Total 8.5 mg/dL (8.5-10.1); Chloride 108 mmol/L (98-107); Creatinine, Serum 1.04 mg/dL (0.55-1.02); EST Glomerular Filtration Rate 61 mL/min (>60); Est Glom Filt Rate - Afr Amer 74 mL/min (>60); Globulin 4.5 g/dL (2.2-4.2); Glucose 123 mg/dL (74-106); Potassium 3.8 mmol/L (3.5-5.1); Protein, Total 8.1 g/dL (6.4-8.2); Sodium Level 137 mmol/L (136-145)
== END | disposition home or self-care (01) ==
LOC: LAB 12:27
PROVIDERS: PCP Internal Medicine; Referring Provider Psychiatry & Neurology Psychiatry; Visit Provider Psychiatry & Neurology Psychiatry
DX: E55.9 Vitamin D deficiency, unspecified (principal)
CPT/HCPCS: 36415; 80053; 84443; 85025

== ENCOUNTER 2024-08-28 07:07 | Outpatient (RCR) | payer OTHER, SELFPAY ==
[2024-08-27 00:30] VITALS: BP 174/118; PULSE 80
--- NOTE | 2024-08-28 09:05 | BH.SGPN.GN ---
Behaviors/Verbalizations/Mental Status: [] Pt alert and oriented, casually dressed and groomed. Eye contact good. Motor activity appropriate. Speech within normal limits. Affect congruent, mood content. Thoughts linear, logical, no signs of hallucinations or delusions. Reviewed pt?s symptom tracker, no risk for suicidal ideation, plan, or intent 08/28/24 Client Response/Progress/Benefit: [] Pt was an active participant in group discussions. Attentive. Able to identify mental health wins including successfully attending a wedding and was able to be present and enjoy herself without panicking. Shared discussing her support needs with her ahead of time and taking breaks throughout which was helpful. Additional win noted as taking more time to be intentional and allow herself to be okay with the ?handley? in life. Shared that this is also a stressor for her as she is uncomfortable with change and the unknown, but is doing much better to remind herself that discomfort is not bad. Benefited from group support, encouragement, and feedback. Will continue in IOP to prevent decompensation, promote mood stability, and continue to improve use of dialectical thinking. Narrative Note: []
--- NOTE | 2024-08-28 10:15 | BH.SGPN.GN ---
Behaviors/Verbalizations/Mental Status: [] Client alert and oriented, neatly dressed and groomed. Eye contact good. Motor activity appropriate. Speech within normal limits. Affect congruent, mood euthymic. Thoughts linear, logical, no signs of hallucinations or delusions. Client Response/Progress/Benefit: [] Client was an active participant in group discussions. Attentive during psychoeducation on 4 types of conflict styles (Competing, Collaborating, Avoiding, and Accommodating). Worked with group to define conflict and identify how conflict is helpful. With peers identified barriers to addressing or managing conflict which included:trauma, body language, and cognitive distortions. Client believes they use the avoidant style of conflict resolution. Client shared this style has impacted them by showing up less in relationships. Benefited from group due to increase insight and awareness of benefits to conflict, conflict styles, and obstacles to managing conflict. Will continue in IOP to prevent decompensation, gain healthier core beliefs, and increase self esteem. Narrative Note: []
--- NOTE | 2024-08-28 11:20 | BH.SGPN.GN ---
Behaviors/Verbalizations/Mental Status: [] Client alert and oriented, neatly dressed and groomed. Eye contact good. Motor activity appropriate. Speech within normal limits. Affect congruent, mood euthymic. Thoughts linear, logical, no signs of hallucinations or delusions. Client Response/Progress/Benefit: [] Client engaged in session AEB contributing to discussion and engaging in small group. Attentive during discussion on strategies for more effectively managing conflict in personal life. Client participated in small group for activity and did well collaborating. Client given handout on DEAR MAN with strategies to to communicate effectively in conflict. Client indicated what needs improvement in conflict for them to work on is monitoring emotions and confident body language. Appeared to benefit from gaining strategies to help client better manage conflict. Will continue IOP tx to reduce negative thinking patterns, increase overall functioning, and increase self-care. Narrative Note: []
--- NOTE | 2024-08-31 09:00 | BH.SGPN.GN ---
Behaviors/Verbalizations/Mental Status: [] Eye contact is good. Motor activity is appropriate. Appearance is casual. Speech is Appropriate. Mood is anxious. Affect is congruent. Thoughts are linear and logical. No evidence of psychosis. Reviewed daily check in sheet and no reports of suicidal ideations or intent. Client Response/Progress/Benefit: [] Pt was an active participant in group discussion. Attentive. Daily symptom tracker notes 2/5 for depression and irritability. Describes herself as being less emotional. Gave examples of always crying when having a conversation with her in recent months, however did not cry during a couple recent discussions. She views this as progress. Continues to work on being advocate for herself instead of people pleasing and sacrificing her wants for the family which led to depression, anxiety, stress, and mental health decompensation. Looking to find a balance in her new job where she helps out financially however finds meaning and purpose in her job. Feeling uncertain today. Progress noted. Benefited from group support, encouragment, and feedback. Will continue in IOP to prevent decompensation, increase healthy coping, and improve functioning. Narrative Note: []
--- NOTE | 2024-08-31 10:10 | BH.SGPN.GN ---
Behaviors/Verbalizations/Mental Status: [] Pt alert and oriented, casually dressed and groomed. Eye contact good. Motor activity appropriate. Speech within normal limits. Affect congruent, mood euthymic. Thoughts linear, logical, no signs of hallucinations or delusions. Client Response/Progress/Benefit: [] Pt participated during small group discussions. Attentive during psychoeducation about defense mechanisms. Showed engagement during small group discussions and helped group identify which defense mechanisms were maladaptive, adaptive, or ?somewhere in the alt[place]irano.? Pt worked with small group on identifying how each defense mechanism can impact mental health and gave examples. ?Seemed to benefit from gaining awareness about the different defense mechanisms. Pt to continue IOP tx to promote use of healthy coping skills, challenge distorted and negative thoughts, and prevent decompensation.
--- NOTE | 2024-08-31 11:15 | BH.SGPN.GN ---
Behaviors/Verbalizations/Mental Status: []Pt alert and oriented, casually dressed and groomed. Eye contact good. Motor activity appropriate. Speech within normal limits. Affect congruent, mood content. Thoughts linear, logical, no signs of hallucinations or delusions. Client Response/Progress/Benefit: []Pt responded well to session, participating in activity and small group discussion. Group reviewed the rest of the defense mechanisms and discussed how these are adaptive, maladaptive, or somewhere in the [place]. Pt's defense mechanisms included sublimation, suppression, humor, and intellectualization. Pt shared wanting to work on her intellectualization as pt recognizes she doesn?t always consider her own emotions in a situation. Pt listened to lead android developer teach different skills to help pt?s cope with or change their defense mechanisms. Pt appeared to benefit from gaining insight to the different defense mechanisms and learning coping skills. Pt will continue IOP tx to prevent decompensation, maintain mood stability, and improve self-compassion. Narrative Note: []
--- NOTE | 2024-09-01 09:05 | BH.SGPN.GN ---
Behaviors/Verbalizations/Mental Status: []Pt alert and oriented, neatly dressed and groomed. Eye contact good. Motor activity appropriate. Speech within normal limits. Affect congruent, mood anxious. Thoughts linear, logical, no signs of hallucinations or delusions. Reviewed pt?s symptom tracker, no risk for suicidal ideation, plan, or intent 09/01/24 Client Response/Progress/Benefit: []Pt was an active participant in group discussions. Attentive. Able to identify mental health wins including listening to less learning based podcasts which has been a goal with her outpatient therapist and challenging perfectionistic thinking more often. Pt's stressor today is she is going into work today to talk with her boss about what her future goals look like. Pt stated she is feeling anxious this morning. Pt receptive to feedback from peers which pt reported was helpful. Progress noted. Benefited from group support, encouragement, and feedback. Will continue in IOP to promote mood stability, increase distress tolerance skills, and improve self-compassion. Narrative Note: []
--- NOTE | 2024-09-01 10:10 | BH.SGPN.GN ---
Behaviors/Verbalizations/Mental Status: [] Eye contact is good. Motor activity is appropriate. Appearance is casual. Speech is Appropriate. Mood is euthymic. Affect is full. Thoughts are linear and logical. No evidence of psychosis Client Response/Progress/Benefit: [] Pt responded well to session AEB contributing to small group discussion, taking notes, and listening attentively to others. Group defined anger and discussed the benefits of managed anger (advocating for self, getting needs met, catalyst for change). Worked with peers in small groups to identify common anger triggers as well as emotions which lay underneath anger or 'drive such as; helplessness, fear, guilt, anxiety, grief, shame, and jealously. Appeared to benefit from increased knowledge of the anger cycle as well as personal triggers. Will continue IOP to increase healthy coping, prevent decompensation, and improve functioning. Narrative Note: []
--- NOTE | 2024-09-01 11:15 | BH.SGPN.GN ---
Behaviors/Verbalizations/Mental Status: []Client alert and oriented, casually dressed and groomed. Eye contact good. Motor activity appropriate. Speech within normal limits. Affect congruent, mood euthymic and positive. Thoughts linear, logical, no signs of hallucinations or delusions. Client Response/Progress/Benefit: []Pt was engaged throughout AEB contributing to group discussion and activity. Group processed how they each responded to the intentionally difficult task they were asked to completed and described the physical and emotional anger cues experienced throughout, as well as strategies used for managing these frustrations. Pt contributed as group brainstormed healthy coping skills for better managing anger which included: music, walking/exercise, taking a break, healthy venting, avoiding unnecessary stressors, reflection, and journaling. Pt cooperative with working in small groups to identify what strategy wants to work on to help interrupt personal anger cycle. Pt to continue IOP to promote use of healthy coping skills, continue to build confidence, and prevent decompensation.
--- NOTE | 2024-09-01 14:55 | BH.MDN_ITS ---
Multi-Disciplinary Note Note 45-min Individual: Time Started:: 12:10 Date: 09/01/24 Purpose of session/treatment goals addressed:: To work on goal #2 of pt's tx plan and practice acceptance skills. Eye Contact:: Good Motor Activity:: Appropriate Appearance:: Neat Speech:: Appropriate Mood:: Euthymic and Anxious Affect:: Full Thoughts:: Linear, Logical and No evidence of hallucinations/delusions noted Staff Interventions:: thought challenging, motivational interviewing, CBT techniques, mindfulness skills, strengths perspective and other (acceptance strategies) Client Response:: Pt responded well to session, open to meeting with therapist. Pt reports she is feeling anxious today but also motivated. Pt plans to go to work today to talk with her boss about how pt is feeling about her job. Pt has been working on self-exploration and allowing herself to have and express needs. Pt has learned throughout her time in therapy that her childhood taught pt that she could not have wants and needs. Pt has been working on creating a new way of thinking and living that includes giving herself to permission to practice self-care. 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 Pt has told her about wanting to quit work, but pt stated she is terrified to tell him about her idea of going back to school. Pt shared this is because she feels like if she tells him and he is okay with it, then pt is being selfish and someone will know which would be vulnerable. Pt did well to challenge these thoughts and recognize where the beliefs and worries stem from. Pt also has been working on acceptance strategies and how this can help pt be less self-critical and use more dialectical thinking. Pt shared it has been helping her to remember that she cannot erase old beliefs, she has to build new ones alongside them. Pt plans to continue working on self-compassion and she will play [employer] this weekend which pt stated she has not done in years. Pt wants to process how her talk goes with her boss next week. Risks/Concerns:: Pt denies any suicidal ideations, plan, or intent. Pt denies any thoughts of . Progress Toward Goals/Plan:: Progress noted as pt reports consistently feeling more confident in her ability to address stressors and have difficult conversations with her . Pt reports benefitting from group sessions and feels she is applying coping skills outside of IOP. Pt continues to work on self-advocacy and self-worth, but she sees progress in these areas. Pt is on track to discharge from IOP in approximately two weeks. Pt will continue IOP tx to promote mood stability, increase self-compassion, and reduce avoidance. Time Stopped:: 13:00
--- NOTE | 2024-09-05 09:05 | BH.SGPN.GN ---
Behaviors/Verbalizations/Mental Status: [] Eye contact is good. Motor activity is appropriate. Appearance is casual. Speech is Appropriate. Mood is euthymic. Affect is full. Thoughts are linear and logical. No evidence of psychosis. Reviewed daily check in sheet and no reports of suicidal ideations or intent. Client Response/Progress/Benefit: [] Pt was an active participant in group discussions. Attentive. Daily symptom tracker notes 2/5 for anxiety and /5 for depression. ?I?m making a desire known?. She has been more honest with her about her wants and needs regarding her career and their future. Hx of ?keeping all that in? which has resulted in emotional distress. Increased clarify after speaking with about returning to school. Developed a plan in which she will return to work till April and then begin to apply to colleges.? Progress noted. Benefited from group support, encouragement, and feedback. Will continue in IOP to prevent decompensation, increase healthy coping, and improve functioning. Narrative Note: []
--- NOTE | 2024-09-05 10:15 | BH.SGPN.GN ---
Behaviors/Verbalizations/Mental Status: []Pt alert and oriented, neatly dressed and groomed. Eye contact good. Motor activity appropriate. Speech within normal limits. Affect congruent, mood euthymic. Thoughts linear, logical, no signs of hallucinations or delusions. Client Response/Progress/Benefit: [] Pt engaged and actively participating in discussion, taking notes. Pt attentive during psychoeducation about the window of tolerance and noted personal connections. Group identified what contributes to low distress tolerance. The group gained awareness of the three zones of tolerance and pt was able to identify what they look like in each zone. Pt noted that in the hyperarousal zone pt is anxious and izzy-managing, but when she is in the window of tolerance, she feels able to communicate and engage in daily life. Pt appeared to benefit from psychoeducation on distress tolerance and practicing self-reflection. Pt will continue IOP tx to promote mood stability, increase self-compassion, and reinforce healthy coping skills. Narrative Note: []
--- NOTE | 2024-09-05 11:20 | BH.SGPN.GN ---
Behaviors/Verbalizations/Mental Status: []Pt alert and oriented, casually dressed and groomed. Eye contact good. Motor activity appropriate. Speech within normal limits. Affect congruent, mood anxious. Thoughts linear, logical, no signs of hallucinations or delusions. Client Response/Progress/Benefit: [] Pt responded well to session AEB taking notes and contributing to discussion throughout. Pt engaged as group continued discussion on distress tolerance and the mental health benefits of widening their overall Window of Tolerance. Pt engaged with group in experiential activity provided input on connections between variables in the activity and distress tolerance. Worked within small groups to identify strategies to increase distress tolerance and reduce hyper-arousal and hypo-arousal states. Identified wanting to begin implementing distress tolerance skills of: exercise/mindful movement, accomplishment log, and T.I.P.P skill. Pt appeared to benefit from gaining insight and learning strategies to increase distress tolerance. Pt will continue IOP tx to promote use of healthy coping skills, challenge negative perspective, and prevent decompensation. Narrative Note: []
--- NOTE | 2024-09-07 08:55 | BH.SGPN.GN ---
Behaviors/Verbalizations/Mental Status: [] Pt alert and oriented, neatly dressed and groomed. Eye contact good. Motor activity appropriate. Speech within normal limits. Affect congruent, mood euthymic. Thoughts linear, logical, no signs of hallucinations or delusions. Reviewed pt?s symptom tracker, no risk for suicidal ideation, plan, or intent 09/07/24 Client Response/Progress/Benefit: []Pt was an active participant in group discussions. Attentive. Able to identify mental health wins including feeling good and at peace more often and reducing her caffeine consumption which has helped her anxiety. Pt's stressor today is her talk with her boss went well, but now pt has to reinforce those boundaries at work. Pt stated she is feeling settled this morning. Pt receptive to feedback from peers which pt reported was helpful. Progress noted. Benefited from group support, encouragement, and feedback. Will continue in IOP to promote mood stability, increase distress tolerance skills, and improve self-compassion. Narrative Note: []
--- NOTE | 2024-09-07 09:55 | BH.SGPN.GN ---
Behaviors/Verbalizations/Mental Status: [] Eye contact is good. Motor activity is appropriate. Appearance is casual. Speech is Appropriate. Mood is euthymic. Affect is congruent. Thoughts are linear and logical. No evidence of psychosis. Client Response/Progress/Benefit: [] Pt receptive to session AEB contributing to group discussion, as well as listening attentively to others, and taking notes. Worked with group to brainstorm the positive and negative aspects of stress on physical and mental health as well as the impact of distress on performance, relationships, and mental health. Pt shared their top stressors to be: self-reflection/trying to break cycles, high expectations for self to create [place] [employer], and work. Shared when feeling overwhelmed with stress pt tends to be irritable, procrastinate, and shut down. Benefited from increased awareness of positive and negative stress as well as how stress impact individuals. Will continue in IOP to challenge distorted thoughts, increase self-care, and prevent decompensation.
--- NOTE | 2024-09-07 11:05 | BH.SGPN.GN ---
Behaviors/Verbalizations/Mental Status: [] Pt alert and oriented, casually dressed and groomed. Eye contact good. Motor activity appropriate. Speech within normal limits. Affect congruent, mood euthymic. Thoughts linear, logical, no signs of hallucinations or delusions. Client Response/Progress/Benefit: [] Pt was an attentive participant in group discussions and actively engaged during experiential activity, doing well to regulate their emotions throughout the activity and work with peers. Attentive during psychoeducation on the 4 A's (Avoid, adapt, alter, accept) of coping with stress. Shared that they would benefit most from working on accepting past mistakes by focusing on self-forgiveness and adjusting her approach when at work by having clear conversations with her boss. Was able to identify the connection between the experiential activity and utilization of stress management skills. Benefited from increased awareness of stress management strategies. Pt will continue IOP to promote use of healthy coping skills, challenge distortions, and prevent decompensation.
--- NOTE | 2024-09-07 14:36 | BH.MDN ---
Multi-Disciplinary Note Note 45-min Individual: Time Started:: 12:00 Date: 09/07/24 Purpose of session/treatment goals addressed:: To review progress and homework. Another goal was to discuss discharge plan. Eye Contact:: Good Motor Activity:: Appropriate Appearance:: Neat Speech:: Appropriate Mood:: Euthymic and Other (appreciative) Affect:: Full (tearful when reflecting on growth.) Thoughts:: Linear, Logical and No evidence of hallucinations/delusions noted Staff Interventions:: thought challenging, CBT techniques, mindfulness skills, discharge planning, strengths perspective and other (reviewed progress.) Client Response:: Pt responded well to session, open to meeting with therapist. Pt reports feeling settled ever since she had a talk with her on Wednesday and told him that she wants to go to college to become a therapist. Pt shared I've had years of anxiety over this and I know it's silly but in that moment I felt the most authentic I've ever been. Pt stated her was very supportive. Pt was tearful reflecting on her personal growth and ability to be authentic. Pt has been working on allowing herself to take up space, express her needs, and practice self-care. This has been difficult for pt as she has struggled since childhood with negative core beliefs and not feeling safe enough to have needs. Pt reported that talking to her and him being supportive gave pt evidence that she allowed to just show up and be worthy of love. Pt stated she has been practicing dialectical thinking as well to help her when she begins to personalize or feel anxious about setting boundaries. Pt spoke with her boss as well and advocated for herself in regard to returning to work and what pt's responsibilities would look like. Pt shared she feels better about going back to work knowing she finally has a plan for her future. Pt plans to go to college in April after she and her pay their last mortgage payment. Pt is sad to be graduating [employer] but she also sees how much progress she has made. Risks/Concerns:: Pt denies any suicidal ideations, plan, or intent. Pt denies any thoughts of . Progress Toward Goals/Plan:: Progress noted as pt reports consistently feeling more stable and today she reports feeling authentic and settled. Pt reports benefitting from group sessions and feels she is applying coping skills outside of [facility]. Pt reports she is improving with advocating for herself and reminding herself that she is worthy of expressing needs. Pt will discharge from IOP tx next week as pt is seeing consistent progress in mood stability and functioning. Pt will continue IOP tx through next week to reinforce healthy coping skills and further improve mood. Time Stopped:: 12:45
--- NOTE | 2024-09-08 09:00 | BH.SGPN.GN ---
Behaviors/Verbalizations/Mental Status: [] Eye contact is good. Motor activity is appropriate. Appearance is casual. Speech is Appropriate. Mood is euthymic. Affect is full. Thoughts are linear and logical. No evidence of psychosis. Reviewed daily check in sheet and no reports of suicidal ideations or intent. Client Response/Progress/Benefit: [] Pt was an active participant in group discussions. Attentive. Daily symptom tracker notes 10/01 for anxiety, depression, and irritability. I'm handling things better. Feels she is making progress in managing her anxiety, depression, self-esteem, and day to day thoughts. Spoke about the consequences and placing unrealistic expectations on herself. Also is working on changing routines to lessen expectations that she puts on herself. Progress noted. Benefited from group support, encouragement, and feedback. Will continue in IOP to maintain gains and increase healthy coping. Narrative Note: []
--- NOTE | 2024-09-08 10:05 | BH.SGPN.GN ---
Behaviors/Verbalizations/Mental Status: []Pt alert and oriented, casually dressed and groomed. Eye contact good. Motor activity appropriate. Speech within normal limits. Affect congruent, mood euthymic. Thoughts linear, logical, no signs of hallucinations or delusions. Client Response/Progress/Benefit: [] Pt responded well to session, attentive and engaged. Group participated in the discussion defining stigma as well as what stigma has kept pt's from doing in their lives. Pt stated mental health stigma has led pt to not allow herself help that she advocates for others and to become a ?shape shifter.? Pt worked with peers to begin discussion of what reinforces stigma, both socially and internally, and this was discussed further in the next group. Pt appeared to benefit from learning about the different types of stigma as well as gaining awareness of how stigma has personally impacted pt. Pt will continue IOP tx to promote gains, reinforce use of healthy coping skills, and increase self-compassion. Narrative Note: []
--- NOTE | 2024-09-08 11:05 | BH.SGPN.GN ---
Behaviors/Verbalizations/Mental Status: []Pt alert and oriented, casually dressed and groomed. Eye contact good. Motor activity appropriate. Speech within normal limits. Affect congruent, mood euthymic. Thoughts linear, logical, no signs of hallucinations or delusions. Client Response/Progress/Benefit: [] Pt engaged participant AEB participating in the activity, providing input during small group discussion, and listening attentively to others. Pt appeared to connect with discussion in the benefits of addressing mental health stigma which included: improved relationships, increased willingness to seek help, increased happiness, and improved confidence. Group brainstormed strategies to combat social and perceived stigma. Pt identified that they can contribute to stigma by shutting down and not advocating for themselves.?Pt shared one thing pt can do to combat stigma is to be more open with her family about IOP and her mental health instead of keeping it all in. Appeared to benefit from increasing awareness of strategies to combat stigma. Pt is to continue IOP to promote use of healthy coping skills, challenge .
--- NOTE | 2024-09-12 09:00 | BH.SGPN.GN ---
Behaviors/Verbalizations/Mental Status: [] Eye contact is good. Motor activity is appropriate. Appearance is casual. Speech is Appropriate. Mood is anxious/irritable. Affect is congruent. Thoughts are linear and logical. No evidence of psychosis. Reviewed daily check in sheet and no reports of suicidal ideations or intent. Client Response/Progress/Benefit: [] Pt was an active participant in group discussions. Attentive. Daily symptom tracker notes 3/5 for agitation and 2/5 for anxiety. ? I?m dealing with some anger issues?. ? Challenging thought is a lot?. ? Its so exhausting?. Shared holiday stressors and some interpersonal conflicts which have increase her anger. Utilizing skills to help however insight that frustration and anger are emotions to will occur and don?t always need to be pushed out. Progress noted. Benefited from group support, encouragement, and feedback. Will continue in IOP to maintain gains. Narrative Note: []
--- NOTE | 2024-09-12 10:10 | BH.SGPN.GN ---
Behaviors/Verbalizations/Mental Status: []Pt alert and oriented, casually dressed and groomed. Eye contact good. Motor activity appropriate. Speech within normal limits. Affect congruent, mood euthymic and anxious. Thoughts linear, logical, no signs of hallucinations or delusions. Client Response/Progress/Benefit: [] Pt was an active?participant in small group discussion. Pt?s group worked together to identify benefits of healthy relationships which included insight, accountability, and guidance. Group identified factors that lead to unhealthy relationships. Pt?s personal factors included poor communication, cognitive distortions, and poor boundaries. Actively participated in group experiential activity and expressed ideas to group. Benefited from increased insight and awareness of benefits of healthy relationships and factors that contribute to unhealthy relationships. Will continue IOP tx to promote mood stability, increase self-compassion, and improve daily functioning. Narrative Note: []
--- NOTE | 2024-09-12 11:10 | BH.SGPN.GN ---
Behaviors/Verbalizations/Mental Status: [] Pt alert and oriented, casually dressed and groomed. Eye contact good. Motor activity appropriate. Speech within normal limits. Affect full, mood euthymic, Thoughts linear, logical, no signs of hallucinations or delusions. Client Response/Progress/Benefit: [] Client responded well to session, engaged and taking notes throughout. Worked with group to connect components of the experiential activity with characteristics of healthy and unhealthy relationships. Attentive during psychoeducation about characteristics of healthy, unhealthy, and abusive relationships. Client reported she would like to continue to improve communication by asking her an ice breaker question in the evening to improve connection beyond talking about kids and problems. Stated she will also share with things she appreciates about him. Appeared to benefit from identifying current healthy relationship attributes and an area client wants to work on to build healthier relationships. Client to continue IOP to promote gains, continue use of healthy coping, and prevent decompensation.
--- NOTE | 2024-09-14 09:00 | BH.SGPN.GN ---
Behaviors/Verbalizations/Mental Status: [] Pt alert and oriented, neatly dressed and groomed. Eye contact good. Motor activity appropriate. Speech within normal limits. Affect congruent, mood euthymic and anxious. Thoughts linear, logical, no signs of hallucinations or delusions. Reviewed pt?s symptom tracker, no risk for suicidal ideation, plan, or intent 09/14/24 Client Response/Progress/Benefit: []Pt was an active participant in group discussions. Attentive. Able to identify mental health wins including continuing to do difficult things like being vulnerable with her and communicating her needs. Pt shared she has been benefitting from doing these things and overall she feels more confident. Pt's stressor today is preparing for the upcoming holiday and maintaining progress she has made in IOP. Pt stated she is feeling overwhelmed this morning due to [place]. Pt receptive to feedback from peers which pt reported was helpful. Progress noted. Benefited from group support, encouragement, and feedback. Will continue in IOP to reinforce healthy coping skills and establish aftercare. Narrative Note: []
--- NOTE | 2024-09-14 10:10 | BH.SGPN.GN ---
Behaviors/Verbalizations/Mental Status: []Pt alert and oriented, neatly dressed and groomed. Eye contact good. Motor activity appropriate. Speech within normal limits. Affect congruent, mood euthymic. Thoughts linear, logical, no signs of hallucinations or delusions. Client Response/Progress/Benefit: [] Pt was an engaged participant AEB listening attentively to others, taking notes, and providing feedback in small group discussions. Attentive during psychoeducation AEB by note taking and providing some input. Pt worked along with peers in small groups to define inappropriate guilt and appropriate guilt. Worked well in small group with peers where they identified example of inappropriate vs appropriate guilt, and the impact inappropriate guilt can have on MH. Pt identified a personal example of inappropriate guilt as ?feeling bad for saying no and then I have to overcompensate.? Benefited from increased awareness of guilt and the differences between appropriate and inappropriate guilt. Plan is to continue in IOP to further increase self-confidence, reinforce healthy coping skills, and improve daily functioning. Narrative Note: []
--- NOTE | 2024-09-14 10:10 | BH.SGPN.GN ---
Behaviors/Verbalizations/Mental Status: []Pt alert and oriented, casually dressed and groomed. Eye contact good. Motor activity appropriate. Speech within normal limits. Affect congruent, mood content and anxious. Thoughts linear, logical, no signs of hallucinations or delusions. Client Response/Progress/Benefit: [] Pt engaged participant AEB listening attentively to others and providing input throughout group. Pt worked within their small group to identify strategies to manage inappropriate guilt. Shared a personal example of inappropriate guilt as feeling guilty for feeling like she is making the wrong choice if her seems uncomfortable. Insight this leads to fear that she may not be emotionally safe and then shutting down. Pt wants to work on combatting inappropriate guilt by challenging distortions and improving emotion regulation skills. Pt seemed to benefit from learning about strategies to manage appropriate and inappropriate guilt. Pt will continue IOP tx to reduce promote mood stability, reinforce healthy coping, and prevent decompensation. Narrative Note: []
--- NOTE | 2024-09-14 12:01 | PCM.BH.PN ---
Progress Note Progress Note: History of Present Illness/Interim History: The patient is a 44-year-old female with a history of depression and anxiety who is seen in follow-up at the [facility]. I last saw the patient 3 weeks ago and at that time no medication changes were made as the patient felt she was improving. According to staff the patient has been consistent in her attendance and engaged in the program. She feels she is doing much better and feels that her mood is only rarely feeling depressed anymore. She is hopeful for the future but cautiously hopeful as she realizes how much work she has done. Her blood pressure is well-controlled now on losartan and she feels good about this. Sleep remains good at 8 hours a night. She denies passive thoughts of , suicidal ideation, plan for suicide, homicidal ideation, hallucinations or delusions. No panic attacks. Current Psychiatric Medications: [] Pristiq 50 mg p.o. daily (x 9 weeks); she is not requiring the hydroxyzine at bedtime anymore for sleep. Mental Status Examination: [] The patient is a 44-year-old female who is normal or slightly appears older than 8 her age. She is casually dressed and groomed with good hygiene and is ambulatory with a normal gait. She has no psychomotor agitation or retardation. She is cooperative and pleasant during the interview. Speech is normal rate and rhythm and fluent with no pressure and eye contact is good. Mood is euthymic. Affect is full and normal. Thought process is goal-directed and organized. Thought content: The patient is cautiously hopeful for the future. There is no evidence of passive thoughts of , suicidal ideation, plan for suicide, homicidal ideation, hallucinations or delusions. Reality testing is intact. Intelligence is above average. Judgment is intact. Insight is good. Compulsivity is low. Diagnoses: [] 1. Major depressive disorder, recurrent in full remission 2. Generalized anxiety disorder 3. Hypertension 4. Work and primary support issues Plan: [] The patient will be discharged from the [facility] tomorrow as her condition has improved. She felt safe during the interview and if it anytime she does not feel safe she has agreed to let us know or go to the emergency room. No medication changes were made. The patient plans to attend the aftercare program and see her outpatient counselor. She will continue to follow-up with her outpatient providers.
--- NOTE | 2024-09-14 15:07 | BH.AFTERPLAN ---
Aftercare Plan Demographics Treatment End Date:: 09/15/24 Psychiatrist:: Gina Comer Psychiatrist Office #:: [phone] [facility]/IOP Therapist:: Carolyn Regalado Therapist Phone #:: [phone] Medications Home Medications desvenlafaxine succinate 50 mg tablet,extended release 24 hr (Pristiq) 50 mg PO DAILY 08/02/24 hydroxyzine HCl 25 mg tablet 25 - 50 mg PO BID PRN anxiety 08/02/24 quetiapine 50 mg tablet (Seroquel) 75 mg PO QHS 08/02/24 metoprolol succinate 50 mg tablet,extended release 24 hr (Toprol XL) 50 mg PO DAILY 08/23/24 Plan Details Progress/Aftercare Plan Details:: Belkys has responded well to treatment as evidenced by Belkys consistently attending IOP sessions and her reduction of DSM-5 scores since admission. Belkys was always attentive and receptive to learning during group and individual sessions. Belkys actively applied coping skills outside of IOP and reports overall her mood is improved and she is functioning better than she was several months ago. Belkys?s overall symptom reduction is 39% since admission with anger decreasing by 33%, depression decreasing by 43%, feeling detached decreasing by 67%, and anxiety decreasing by 22%. Belkys has increased self-compassion and faced many hard things. Most importantly, Belkys has become more vulnerable, flexible, and confident in her abilities. Belkys will follow up with [facility] Lozano for medication management and [facility] for individual therapy. Strategies for Success:: 1. Opposite action! Continue to break that cycle of anxiety, guilt, and depression by not letting emotions be the only drivers of your bus. 2. Remember that thoughts are thoughts NOT facts! You have power in if you give thoughts the time of day or not. 3. self-care! You deserve to take time for you and you also deserve to face the not so fun self-care like delegating tasks and advocating for yourself 4. Self-compassion! You are human and you will make a mistake?BUT that doesn?t mean you are a failure or not good enough. Remember there are no bad parts! 5. Continue to practice acceptance and remember that it is okay to be AVERAGE! 6. Practice positive self-talk and keep track of your wins. 7. Remember progress isn?t linear! You may have a setback or bump in the road, but that doesn?t mean you?ve lost all progress. 8. self-reflection and self-awareness. 9. Be understanding with yourself and try to see the whole picture, not just the snapshot. 10. Live in the handley!! Appointments Appointments/Referrals to Other Services:: 1. [facility] every Wednesday for counseling 2. [facility] Lozano for medication management. 3. IOP aftercare starting 10/02/24 from 2-3:30pm for 8 weeks.
--- NOTE | 2024-09-15 08:54 | BH.DS ---
Discharge Summary Demographics Date of Admission:: 07/31/24 Discharge Date: 09/15/24 Presenting Problems at Admission:: Pt is a 44 year-old female with a history of MDD and MENDY. Pt was referred to [facility] tx by her outpatient therapist due to decompensating over the past several months. At admission, pt reported I'm broken. At admission, pt endorsed poor concentration, hopelessness, isolation, excessive guilt, low motivation, low energy, and ruminations. Pt also reported panic attacks, emotional dysregulation, and erratic moods. Pt's functioning has been impaired by her mental health symptoms including difficulty completing ADLs and working at her baseline. Discharge Diagnoses:: Major Depressive Disorder, recurrent, severe, without psychosis F 33.2; MENDY; Rule out PTSD Reason for Discharge:: Pt has accomplished her tx goals AEB her reduction of DMS-5 symptoms, her self-report of improved functioning and mood, and improved outlook. Pt no longer meets criteria for [facility] level of care and will discharge to outpatient counseling. Treatment Progress During Treatment & Response: Pt has responded well to treatment as evidenced by Pt consistently attending IOP sessions and her reduction of DSM-5 scores since admission. Pt was always attentive and receptive to learning during group and individual sessions. Pt actively applied coping skills outside of IOP and reports overall her mood is improved and she is functioning better than she was several months ago. Pt?s overall symptom reduction is 39% since admission with anger decreasing by 33%, depression decreasing by 43%, feeling detached decreasing by 67%, and anxiety decreasing by 22%. Pt has increased self-compassion and faced many hard things. Most importantly, Pt has become more vulnerable, flexible, and confident in her abilities. Pt will follow up with [place] [id number] for medication management and [facility] for individual therapy. Issues Still to be Addressed:: Pt can benefit from continuing to work on self-compassion, being vulnerable with her , and practicing self-care. Pt also will continue to work with Valeria on core beliefs, trauma, and increasing self-worth. Discharge Recommendations/Instructions:: Pt will continue with her outpatient providers at [place] [id number] for medication management where pt sees Mera. Pt reports her next medication appointment is in September. Pt will also follow up with Valeria [facility] at [facility] for individual therapy. Pt sees Valeria every Wednesday. Pt will begin IOP after on 09/28/24 for about 8 weeks. Discharge Handout
--- NOTE | 2024-09-15 09:00 | BH.SGPN.GN ---
Behaviors/Verbalizations/Mental Status: [] Eye contact is good. Motor activity is appropriate. Appearance is casual. Speech is Appropriate. Mood is euthymic. Affect is full. Thoughts are linear and logical. No evidence of psychosis. Reviewed daily check in sheet and no reports of suicidal ideations or intent. Client Response/Progress/Benefit: [] Pt was an active participant in group discussions. Attentive. Daily symptom tracker notes 10/01 for anxiety, depression, and irritability. Shared with the group that she will be discharged successfully from [facility] today. Increase awareness of her mental health and thoughts. Able to recognize that she was in a ?shame cycle? yesterday. This awareness has been beneficial to help her reframe, accept, and process her thoughts and moods. Shared her progress through [facility]. ? Now I have to take this all into the real world?. Shared her aftercare plan with the group. Will discharge from [facility] today. Narrative Note: []
--- NOTE | 2024-09-15 10:10 | BH.SGPN.GN ---
Behaviors/Verbalizations/Mental Status: [] Client alert and oriented, casually dressed and groomed. Eye contact good. Motor activity appropriate. Speech within normal limits. Affect congruent, mood euthymic and anxious. Thoughts linear, logical, no signs of hallucinations or delusions. Client Response/Progress/Benefit: [] Client was an active participant AEB contributing to discussion, taking notes, and engaging in group activity. Connected with the topic of pitfalls and listened to group discussion on barriers that prevent from choosing a healthier path to mental wellness. Group worked together to identify examples of personal pitfalls. Pt identified personal pitfalls to include: negative thinking, not giving self credit, difficulties setting boundaries, cognitive distortions, shutting down. Client benefited from group as client learned to better identify potential barriers to improving mental health symptoms. Client will d/c and continue in outpatient tx to promote continued use of healthy coping skills and prevent decompensation. Narrative Note: [] Narrative Note: []
--- NOTE | 2024-09-15 11:10 | BH.SGPN.GN ---
Behaviors/Verbalizations/Mental Status: []Client alert and oriented, neatly dressed and groomed. Eye contact good. Motor activity appropriate. Speech within normal limits. Affect congruent, mood euthymic and anxious. Thoughts linear, logical, no signs of hallucinations or delusions. Client Response/Progress/Benefit: [] Pt receptive of session, engaged throughout AEB Pt actively listening and contributing to discussion as well as taking notes.? Pt participated in the experiential activity and did well to communicate ideas with peers and manage emotions. Pt attentive as group processed how the emotions and perspective of the group impacted the activity. Group worked together to identify different coping skills to help manage pitfalls. Pt identified a pitfall they struggle with as anticipating others? needs and not asking for help. Pt plans to work on their pitfall by practicing willingness and [place] mind. Benefited from identifying personal pitfalls and strategies to overcome these pitfalls. Pt will discharge from IOP as she has accomplished her tx goals and no longer meets criteria for IOP level of care. Narrative Note: []
--- NOTE | 2024-09-15 13:59 | BH.MDN ---
Multi-Disciplinary Note Note 30-min Individual: Time Started:: 12:10 Date: 09/15/24 Purpose of session/treatment goals addressed:: To address current stressors and discuss strategies to help cope with these stressors. Another goal was to discuss discharge and aftercare. Eye Contact:: Good Motor Activity:: Appropriate Appearance:: Neat Speech:: Appropriate Mood:: Euthymic and Anxious Affect:: Full Thoughts:: Linear, Logical and No evidence of hallucinations/delusions noted Staff Interventions:: CBT techniques, discharge planning, strengths perspective and reviewed DSM-5 Client Response:: Pt responded well to session, open to meeting with therapist. Pt reports she has felt overwhelmed most of the week. Pt shared that she felt this way because I felt like I had all this stuff to organize and figure out on my own, but my outpatient therapist reminded me that I can ask for help. Pt was laughing as asking for help has been a difficulty for pt for years and she is working on this. Pt reflected on her progress and stated I feel like I've just got so much courage here. Pt has been able to overcome a lot of avoidance due to anxiety by having vulnerable conversations with her . Pt has communicated her desire to go back to school and spoke with her boss to advocate for herself at work. Pt also reports reduced depression, more self-compassion, and less isolation. Pt stated she is still anxious, but she feels ready to continue working on herself. Pt reports looking forward to starting aftercare in September. Risks/Concerns:: Pt denies any suicidal ideations, plan, or intent. Pt denies any thoughts of . Progress Toward Goals/Plan:: Pt will discharge from IOP tx today as pt has accomplished her tx goals (see discharge summary) and no longer meets criteria for IOP level of care. Pt plans to continue with her outpatient therapist and she will begin aftercare on 09/28/24. Time Stopped:: 12:30
== END 2024-09-15 12:42 | disposition home or self-care (01) ==
LOC: BHIOP 07:07
PROVIDERS: PCP Internal Medicine; Referring Provider Psychiatry & Neurology Psychiatry; Visit Provider Psychiatry & Neurology Psychiatry
DX: F33.9 Major depressive disorder, recurrent, unspecified (principal); F41.1 Generalized anxiety disorder; I10 Essential (primary) hypertension; Z79.899 Other long term (current) drug therapy
CPT/HCPCS: S9480; 90832; 90834; 90853

== ENCOUNTER 2024-09-28 13:51 | Outpatient (RCR) | payer OTHER, SELFPAY ==
--- NOTE | 2024-09-28 14:00 | BH.SGPN.GN ---
Behaviors/Verbalizations/Mental Status: []Pt alert and oriented, casually dressed and groomed. Eye contact fair. Motor activity appropriate. Speech within normal limits. Affect constricted, mood depressed. Thoughts linear, logical, no signs of hallucinations or delusions. Client Response/Progress/Benefit: []Pt receptive of session, engaged throughout. Pt reported she has seen her therapist, has an upcoming psychaitry appointment, and is taking her medications consistently. PT reported she has been using healthy coping skills of challenging distorted thoughts, looking at the [place], and opposite action. Stated she has been doing well since discharging from [facility]. Receptive of discussion on ?Chapters of my life? poem. Pt contributed to the discussion of the different chapters one may go through and how they connect with current mental health progress. Pt completed self-reflection on what chapter she believes she is in. In processing of situation that happened during group check-in with another group member pt expressed concern about the other person because of the way that person was presenting in the group. Pt stated she thought the situation was handled well to prevent any additional issues. This senior mortgage underwriter helped pt and rest of group process thoughts and feelings about the situation because it did change group dynamics at the beginning of group. Pt seemed to benefit from support from peers and increasing understanding of ?Chapters of my life?. Will continue IOP aftercare to increase consistent use of healthy coping skills and prevent decompensation.
--- NOTE | 2024-10-05 14:00 | BH.SGPN.GN ---
= Behaviors/Verbalizations/Mental Status: []Pt alert and oriented, casually dressed and groomed. Eye contact good. Motor activity appropriate. Speech within normal limits. Affect congruent, mood happy. Thoughts linear, logical, no signs of hallucinations or delusions. Client Response/Progress/Benefit: []Pt responded well to session AEB sharing and listening attentively to others. Pt has scheduled outpatient mental health appointments for weekly counseling and regular med management and reports consistent medication compliance. Pt reports using skills of healthy distraction, opposite action, self-love, and giving self-credit to maintain mood stability. Pt participated in group discussion defining affirmations and why they are important. Pt provided insight throughout clinician?s presentation of tips for writing personal affirmations and wrote their own affirmations, including ?I am learning to be more self-confident?, ?I matter? and ?I can make choices that are best for me?. Pt appeared to benefit from increased knowledge of affirmation writing skills and creating their own affirmation statements to remind themselves of outside tx environment. Will continue aftercare tx to promote consistent mental health maintenance and prevent decompensation. Narrative Note: []
--- NOTE | 2024-10-12 14:00 | BH.SGPN.GN ---
Behaviors/Verbalizations/Mental Status: []Client alert and oriented, neatly dressed and groomed. Eye contact good. Motor activity appropriate. Speech within normal limits. Affect congruent, mood euthymic. Thoughts linear, logical, no signs of hallucinations or delusions. Client Response/Progress/Benefit: []Pt responded well to session, providing support to peers and contributing. Pt reports meeting with her therapist, taking her meds, and using healthy coping skills. Pt reported using skills such as; mindfulness, self-talk, and affirmations to cope with stressors. Pt engaged in discussion of problem-solving, learned the ABCDEs of problem-solving, and participated in the activity. Pt, along with peers, had to use outside of the box thinking and team work to accomplish the goal. Pt shared she learned that she tends to struggle with taking total control when she is faced with a problem, so pt benefitting from having to rely on others for help. Pt will work on problem-solving skills for homework. Pt will continue IOP aftercare to reinforce healthy coping skills and promote mental wellness. Narrative Note: []
--- NOTE | 2024-11-09 15:08 | BH.TPR ---
Treatment Plan Review Demographics Date of Admission:: 10/05/24 Date of Treatment Plan Review:: 11/09/24 Admitting Diagnoses:: Major Depressive Disorder, recurrent, severe, without psychosis F 33.2; MENDY; Rule out PTSD Current Diagnoses:: Major Depressive Disorder, recurrent, severe, without psychosis F 33.2; MENDY; Rule out PTSD Patient Status Patient's Response to Treatment:: Pt continues to respond well to treatment AEB pt's consistent attendance, ongoing attentiveness and engagement in group discussions, and continued reporting use of skills outside treatment environment. Pt's symptoms are still 64% lower than they were at IOP admission. Status of Current Problems and Symptoms: Pt's symptoms are continuing to decrease since IOP discharge and pt reports benefitting from the maintenance and accountability of aftercare group. Pt has ongoing stressors with anxiety flare ups as well as negative thinking, but pt reports she continues to challenge herself. Progress Problem #1: Problem Name:: Pt will maintain or see a reduction in sx Status of Goals:: Obj 1 - Complete with maintenance encouraged. Pt's depression decreased by 71% compared to IOP admission and anxiety has decreased by 44% compared to IOP admission. Obj 2 - complete with ongoing work encouraged. Pt had been reporting using opposite action, self-compassion, affirmations, and dialectical thinking. Pt is also working on catching distortions and combating them. Team Recommendations:: Recommended client continue IOP aftercare group in addition to attending regular outpatient counseling in order to maintain gains. Pt also recommended to continue working on self-compassion, practice self-care, and setting realistic goals.
--- NOTE | 2024-11-23 15:17 | BH.MTP ---
Master Treatment Plan Patient Information Program Physician:: Dr. Gina Calloway Primary Therapist:: Carolyn Regalado Psychiatric Diagnoses Psychiatric Diagnoses:: Major Depressive Disorder, recurrent, severe, without psychosis F 33.2; MENDY; Rule out PTSD Diagnosis Code(s):: F33.2 Estimated LOS Estimated LOS (in weeks):: 8 Problem/Goal #1 Problem/Goal #1 Stated Goal:: client will maintain or see a reduction in symptoms AEB client score on the DSM 5 cross-cutting measure and improve client's daily functioning. Objectives Objective #1: Stated Objective: Client will continue to consistently apply healthy coping skills to maintain progress made in IOP tx. Interventions: Through group therapy, client will review warning signs and triggers as well as healthy coping skills learned in IOP tx to successfully maintain gains while transitioning into outpatient therapy. Discharge Criteria: Client will have accomplished this goal when client's score on the DSM-5 cross-cutting measure has maintained or reduced over a 8 week period. Target Date: 11/16/24 Review Date: 10/26/24 Objective #2: Stated Objective: Client will learn and utilize 2-3 maintenance strategies to prevent decompensation from original IOP DSM-5 scores. Interventions: Through group therapy, client will be provided with education on healthy maintenance behaviors, relapse prevention techniques, and healthy coping strategies. Discharge Criteria: Client will have accomplished this goal when can report using at least 2 maintenance skills to prevent decompensation compared to original IOP DSM-5 scores Target Date: 11/16/24 Review Date: 10/26/24
== END 2024-10-27 23:59 ==
LOC: BHOG 13:51
PROVIDERS: PCP Internal Medicine; Referring Provider Psychiatry & Neurology Psychiatry; Visit Provider Psychiatry & Neurology Psychiatry
DX: F33.2 Major depressive disorder, recurrent severe without psychotic features (principal); F41.1 Generalized anxiety disorder
CPT/HCPCS: 90853

== ENCOUNTER 2024-10-30 07:17 | Outpatient (RCR) | payer OTHER, SELFPAY ==
--- NOTE | 2024-11-09 14:00 | BH.SGPN.GN ---
Behaviors/Verbalizations/Mental Status: []Client alert and oriented, casually dressed and groomed. Eye contact good. Motor activity appropriate. Speech within normal limits. Affect congruent, mood anxious. Thoughts linear, logical, no signs of hallucinations or delusions. Client Response/Progress/Benefit: []Pt responded well to session AEB sharing and listening attentively to others. Pt followed up with all mental health appointments this week and pt is taking medications regularly. Pt stated self-care, thought challenging, and mindfulness skills as pt?s primary coping skills this week. Pt participated in group discussion defining vulnerability, how and why we avoid it, and the benefits. Pt was an active participant and provided personal examples of being vulnerable and the positive things that came with this. Pt stated that she would like to practice vulnerability this week by having a conversation with her regarding the impact they have on one another?s mental health. Will continue aftercare treatment to reinforce healthy coping skills and promote gains.
--- NOTE | 2024-11-16 14:00 | BH.SGPN.GN ---
Behaviors/Verbalizations/Mental Status: []Pt alert and oriented, casually dressed and groomed. Eye contact good. Motor activity appropriate. Speech within normal limits. Affect congruent, mood euthymic. Thoughts linear, logical, no signs of hallucinations or delusions. Client Response/Progress/Benefit: []Pt receptive of session, engaged throughout. Pt has been reporting utilizing healthy coping skills outside of aftercare and she is consistently taking her medications. These skills included: finding the altamirano, yoga, deep breathing, giving herself credit, and communicating with support. ?Receptive of discussion on distress tolerance and emotional urges. Pt contributed to the discussion of distress tolerance and how building distress tolerance can help improve mood stability and resilience. Pt wants to keep building distress tolerance by not over apologizing. Pt seemed to benefit from support from peers and increasing understanding of distress tolerance. Will discharge from [facility] aftercare as pt has completed the 8-week program. Narrative Note: []
--- NOTE | 2024-11-16 15:05 | BH.DS ---
Discharge Summary Demographics Date of Admission:: 10/05/24 Discharge Date: 11/16/24 Presenting Problems at Admission:: Pt is a 44 year-old female with a history of MDD and MENDY. Pt was referred to [facility] tx by her outpatient therapist due to decompensating over the past several months. At admission, pt reported I'm broken. At admission, pt endorsed poor concentration, hopelessness, isolation, excessive guilt, low motivation, low energy, and ruminations. Pt also reported panic attacks, emotional dysregulation, and erratic moods. Pt's functioning has been impaired by her mental health symptoms including difficulty completing ADLs and working at her baseline.At aftercare admission pt reporting significant improvement in daily functioning and decrease in anxiety and depression. Client could benefit from aftercare program to help with maintenance of skills and progress. Discharge Diagnoses:: Major Depressive Disorder, recurrent, severe, without psychosis F 33.2; MENDY; Rule out PTSD Reason for Discharge:: Pt has accomplished tx goals AEB ability to maintain mood stability and gains made in IOP. Pt's DSM-5 scores remain 79% lower than her IOP admission scores. Pt will transition to traditional outpatient counseling. Treatment Progress During Treatment & Response: Pt responded well and made progress in [facility] aftercare as evidenced by pt's participation in group discussions and self-report of consistently applying coping skills. Pt's overall DSM-5 scores decreased by 83% from IOP admission. Pt?s depression decreased by 71% since original IOP admission and pt's scores for anxiety decreased by 78% compared to original IOP scores. Issues Still to be Addressed:: Client could benefit from continued reinforcement of healthy coping skills, reinforcement of maintenance plan, and formation of a weekly self-compassion practice. Discharge Recommendations/Instructions:: Pt will continue with her outpatient providers at [place] [id number] for medication management where pt sees Mera. Pt reports her next medication appointment is in September. Pt will also follow up with Valeria Ch at [facility] for individual therapy. Pt sees Valeria every Wednesday Discharge Handout
== END 2024-11-16 15:30 | disposition home or self-care (01) ==
LOC: BHOG 07:17
PROVIDERS: PCP Internal Medicine; Referring Provider Psychiatry & Neurology Psychiatry; Visit Provider Psychiatry & Neurology Psychiatry
DX: F33.2 Major depressive disorder, recurrent severe without psychotic features (principal); F41.1 Generalized anxiety disorder
CPT/HCPCS: 90853